=== PATIENT | female | born 1930 | race Caucasian/White ===

== ENCOUNTER → 2016-09-19 | Outpatient (CLI) | payer BC ==
[~2016-09-19] MED LIST: ACET-1311 PO; DYZ PO; LISI-461 PO; MAGNSUS5 PO; METO50TA16 PO; MULT-411 PO; SIMV10TA2 PO
[2016-09-19 17:38] LABS: HEMATOCRIT 37.2 % (37-47); MEAN CELL VOLUME 96.6 fL (80-100); MEAN CORPUSCULAR HEMOGLOBIN 32.2 pg (25-34); MEAN CORPUSCULAR HGB CONC 33.3 g/dl (32-36); MEAN PLATELET VOLUME 9.6 fL (7.4-10.4); PLATELET COUNT 242 K/uL (130-400); RED BLOOD COUNT 3.85 M/uL (4.2-5.4)
[2016-09-19 17:47] LABS: BLOOD UREA NITROGEN 28 mg/dl (7-18); GLUCOSE 127 mg/dl (70-99)
[2016-09-19 17:48] LABS: BUN/CREATININE RATIO 25.8 (10-20); CARBON DIOXIDE 32 mmol/L (21-32); CHLORIDE 96 mmol/L (98-107); POTASSIUM 3.8 mmol/L (3.5-5.1); SODIUM 135 mmol/L (136-145)
[2016-09-19 17:52] LABS: ALB/GLOB RATIO 1.2 (0.9-2); ALKALINE PHOSPHATASE 58 U/L (45-117); ALT/SGPT 29 U/L (12-78); AST/SGOT 21 U/L (15-37); CHOLESTEROL 137 mg/dl (0-200); HDL CHOLESTEROL 70 mg/dl; LDL CHOLESTEROL CALCULATED 58 mg/dl; TRIGLYCERIDES 44 mg/dl (0-150); VERY LOW DENSITY LIPOPROT CALC 9 mg/dl
== END | disposition home or self-care (01) ==
LOC: C.LABBFT 15:28
PROVIDERS: ATTEND Internal Medicine
DX: E78.00 Pure hypercholesterolemia, unspecified (principal); I10 Essential (primary) hypertension

== ENCOUNTER → 2016-11-22 | Outpatient (CLI) | payer BC ==
--- NOTE | 2016-11-22 16:04 | DIAGNOSTIC IMAGING REPORT ---
ABDOMEN ULTRASOUND FOR HERNIA CLINICAL HISTORY: PALPABLE RLQ LUMP/PAIN COMPARISON STUDY: None. FINDINGS: There is reducible bowel containing right inguinal hernia. The neck of the hernia measures 2.4 cm. No fluid collections or masses within the right groin. IMPRESSION: Reducible bowel containing right inguinal hernia. Electronically signed by: Tomás Nayak M.D. 11/22/2016 4:03 PM Dictated Date/Time: 11/22/2016 4:02 PM
== END | disposition home or self-care (01) ==
LOC: C.ULTR 15:25
PROVIDERS: ATTEND Physician Assistant Medical
DX: K40.90 Unilateral inguinal hernia, without obstruction or gangrene, not specified as recurrent (principal); R19.03 Right lower quadrant abdominal swelling, mass and lump

== ENCOUNTER → 2017-01-20 | Outpatient (CLI) | payer BC ==
[~2017-01-20] MED LIST changes: +FURO-85 PO; +METO25TA3 PO; -METO50TA16 PO
[2017-01-20 13:17] LABS: URINE APPEARANCE CLEAR (CLEAR); URINE BILIRUBIN NEG (NEG); URINE COLOR YELLOW; URINE NITRITE NEG (NEG); URINE PH 7.5 (4.5-7.5); URINE SPECIFIC GRAVITY 1.011 (1.000-1.030); UROBILINOGEN NEG (NEG)
[2017-01-20 13:21] LABS: MANUAL MICROSCOPIC REQUIRED? NO; REVIEW REQ? NO
== END | disposition home or self-care (01) ==
LOC: C.LAB 09:51
PROVIDERS: ATTEND Internal Medicine
DX: R39.9 Unspecified symptoms and signs involving the genitourinary system (principal)

== ENCOUNTER → 2017-06-28 | Outpatient (CLI) | payer BC ==
[~2017-06-28] MED LIST changes: -METO25TA3 PO; +METO25TA4 PO
[2017-06-28 16:27] LABS: BASO % 1.1 %; BASO ABS # 0.06 K/uL (0-0.2); EOS % 1.3 %; EOS ABS # 0.07 K/uL (0-0.5); HEMATOCRIT 35.3 % (37-47); HEMOGLOBIN 12.3 g/dL (12.0-16.0); IG# 0.01 K/uL (0.00-0.02); LYMPH % 26.5 %; MEAN CELL VOLUME 95.9 fL (80-100); MEAN CORPUSCULAR HEMOGLOBIN 33.4 pg (25-34); MEAN CORPUSCULAR HGB CONC 34.8 g/dl (32-36); MEAN PLATELET VOLUME 9.5 fL (7.4-10.4); MONO % 8.5 %; MONO ABS # 0.45 K/uL (0.11-0.59); NEUT % 62.4 %; NEUT ABS # 3.29 K/uL (1.4-6.5); PLATELET COUNT 248 K/uL (130-400); RED CELL DISTRIBUTION WIDTH CV 13.1 % (11.5-14.5); RED CELL DISTRIBUTION WIDTH SD 45.8 fL (36.4-46.3); WHITE BLOOD COUNT 5.28 K/uL (4.8-10.8)
[2017-06-28 16:44] LABS: ALBUMIN 3.7 gm/dl (3.4-5.0); ALT/SGPT 22 U/L (12-78); AST/SGOT 20 U/L (15-37); BLOOD UREA NITROGEN 23 mg/dl (7-18); CALCIUM 8.9 mg/dl (8.5-10.1); CARBON DIOXIDE 31 mmol/L (21-32); CHOLESTEROL 126 mg/dl (0-200); CREATININE 1.13 mg/dl (0.60-1.20); GLUCOSE 110 mg/dl (70-99); POTASSIUM 3.5 mmol/L (3.5-5.1); SODIUM 133 mmol/L (136-145)
[2017-06-28 16:54] LABS: ALKALINE PHOSPHATASE 51 U/L (45-117); LDL CHOLESTEROL CALCULATED 51 mg/dl; TOTAL PROTEIN 6.9 gm/dl (6.4-8.2)
[2017-06-29 08:08] LABS: HEMOGLOBIN A1C 5.3 % (4.5-5.6)
== END | disposition home or self-care (01) ==
LOC: C.LABBFT 14:44
PROVIDERS: ATTEND Internal Medicine
DX: E78.00 Pure hypercholesterolemia, unspecified (principal); R73.01 Impaired fasting glucose; I10 Essential (primary) hypertension

== ENCOUNTER 2017-09-28 09:25 | Inpatient (IN) | payer BC, OTHER ==
[~2017-09-28] VITALS: Ht 152.4 cm; Wt 58.2 kg
[2017-09-28 10:18] LABS: PTT PATIENT 25.7 SECONDS (21.0-31.0)
--- NOTE | 2017-09-28 10:24 | DIAGNOSTIC IMAGING REPORT ---
HEAD WITHOUT CONTRAST (CT) CLINICAL HISTORY: 87 years-old Female presenting with EVALUATE WEAKNESS. TECHNIQUE: Multidetector CT imaging of the head was performed without the use of intravenous contrast. IV contrast: None. A dose lowering technique was used consistent with the principles of ALARA (as low as reasonably achievable). COMPARISON: 01/14/2017. CT DOSE (mGy.cm): The estimated cumulative dose is 614.27 mGy.cm. FINDINGS: Industrial Illuminating Engineer topogram: Unremarkable. Proportional ventricular and sulcal prominence, likely age-related parenchymal volume loss. Periventricular and subcortical white matter hypoattenuation, nonspecific but likely indicative of chronic small vessel ischemic change. No mass effect or midline shift. No hemorrhage or acute territorial infarct. No extra-axial fluid collection. Paranasal sinuses and mastoid air cells clear. Calvarium intact. IMPRESSION: 1. Chronic small vessel ischemic change. No acute intracranial abnormality. Electronically signed by: Prakash Salter M.D. 09/28/2017 10:23 AM Dictated Date/Time: 09/28/2017 10:21 AM
--- NOTE | 2017-09-28 10:26 | DIAGNOSTIC IMAGING REPORT ---
CHEST ONE VIEW PORTABLE CLINICAL HISTORY: 87 years-old Female presenting with EVALUATE WEAKNESS. TECHNIQUE: Portable upright AP view of the chest was obtained. COMPARISON: 01/14/2017. FINDINGS: Atherosclerosis of the aortic arch. Cardiac silhouette enlarged. Pulmonary vascular prominence. Mildly low lung volumes. Vague opacity at the right lung base stable to slightly increased from prior. No large effusion or pneumothorax. Degenerative changes of the thoracic spine. Upper abdomen normal. IMPRESSION: 1. Cardiomegaly with mild volume overload. 2. Right basilar opacity may represent vascular shadows or atelectasis. Electronically signed by: Prakash Salter M.D. 09/28/2017 10:24 AM Dictated Date/Time: 09/28/2017 10:23 AM
[2017-09-28 10:28] LABS: BASO % 0.3 %; BASO ABS # 0.02 K/uL (0-0.2); EOS % 0.1 %; EOS ABS # 0.01 K/uL (0-0.5); HEMATOCRIT 34.1 % (37-47); HEMOGLOBIN 12.7 g/dL (12.0-16.0); IG# 0.01 K/uL (0.00-0.02); LYMPH % 12.3 %; LYMPH ABS # 0.86 K/uL (1.2-3.4); MEAN CELL VOLUME 90.5 fL (80-100); MEAN CORPUSCULAR HEMOGLOBIN 33.7 pg (25-34); MEAN CORPUSCULAR HGB CONC 37.2 g/dl (32-36); MEAN PLATELET VOLUME 9.5 fL (7.4-10.4); MONO % 9.3 %; MONO ABS # 0.65 K/uL (0.11-0.59); NEUT % 77.9 %; NEUT ABS # 5.42 K/uL (1.4-6.5); PLATELET COUNT 244 K/uL (130-400); RED CELL DISTRIBUTION WIDTH CV 12.5 % (11.5-14.5); RED CELL DISTRIBUTION WIDTH SD 40.7 fL (36.4-46.3); WHITE BLOOD COUNT 6.97 K/uL (4.8-10.8)
[2017-09-28 10:32] LABS: ALKALINE PHOSPHATASE 59 U/L (45-117); ALT/SGPT 28 U/L (12-78); AST/SGOT 48 U/L (15-37); BLOOD UREA NITROGEN 19 mg/dl (7-18); CALCIUM 8.9 mg/dl (8.5-10.1); CARBON DIOXIDE 27 mmol/L (21-32); CREATININE 1.07 mg/dl (0.60-1.20); GLUCOSE 123 mg/dl (70-99); LIPASE 135 U/L (73-393); POTASSIUM 3.4 mmol/L (3.5-5.1); SODIUM 119 mmol/L (136-145); TOTAL PROTEIN 7.5 gm/dl (6.4-8.2)
[2017-09-28] MEDS ORDERED: ACET-1256 PO (11:30)
[2017-09-28] MEDS ORDERED: LISI-461 PO (11:30)
[2017-09-28] MEDS ORDERED: FURO-85 PO (11:30)
[2017-09-28] MEDS ORDERED: TEMA15CA4 PO (11:30)
[2017-09-28] MEDS ORDERED: LORA-554 PEG (11:30)
[2017-09-28] MEDS ORDERED: LISI10TA PO (11:30)
[2017-09-28] MEDS ORDERED: MULTCHW PO (11:30)
[2017-09-28] MEDS ORDERED: SIMV10TA5 PO (11:30)
[2017-09-28] MEDS ORDERED: CRANCAP4 PO (11:30)
[2017-09-28] MEDS ORDERED: CYAN500T PO (11:30)
[2017-09-28] MEDS ORDERED: TRIA37.5 PO (11:30)
[2017-09-28] MEDS ORDERED: METO-478 PO (11:30)
[2017-09-28] MEDS ORDERED: MOML PO (11:30)
[2017-09-28] MEDS ORDERED: SODIUM CHLORIDE 0.9% 500ML 500 ML IV ONE (12:00)
[2017-09-28] MEDS ORDERED: ONDANSETRON INJ 2 MG/ML 2 ML VIAL IV PRN (12:00)
[2017-09-28] MEDS ORDERED: MAGNESIUM HYDROXIDE SUSP 30 ML UDC PO PRN (12:00)
[2017-09-28] MEDS ORDERED: ALUMINUM/MAGNESIUM/SIMETH (MAALOX MAX) 30 ML UDC PO PRN (12:00)
[2017-09-28] MEDS ORDERED: POLYETHYLENE (MIRALAX) 17 GM PACK PO PRN (12:00)
[2017-09-28] MEDS ORDERED: ACETAMINOPHEN 325 MG TAB PO PRN (12:00)
--- NOTE | 2017-09-28 12:15 | History and Physical ---
History & Physical Date & Time of Service: Sep 28, 2017 at 12:11 Chief Complaint: Mental - Does Not Know Her Name Primary Care Physician: Lee Manuel M.D. History of Present Illness Source: family Ms. Navarrete is an 87 y/o female with PMHx of Vascular Dementia, Hemorrhagic CVA , HLD, HTN, Severe Tricuspid Regurgitation, Multifocal Atrial Tachycardia, and Pulmonary HTN who presents to the ED due to AMS. HPI obtained from daughter at bedside. She states patient has ongoing issues with dates/times due to her dementia but has noticed she has been progressively more confused over the past couple weeks. She states around September 13 she called her PCP thinking she may have a UTI and was prescribed Macrobid and completed course with really no change. She has progressively been more confused and sometimes answering questions with just random letters. During my exam when I asked her if she was coughing her response was "C, O, M" but largely answers questions appropriately. Patient is on Triamterene/HCTZ but family denies recent changes to this medication. Also takes daily Lasix. She was recently started on Restoril for insomnia issues last Monday. Per daughter, today she was found wandering the house. They report her legs are more swollen then baseline but has ongoing issues with such and varicosities. Past Medical/Surgical History 1. Vascular Dementia 2. H/O Hemorrhagic CVA 3. HTN 4. HLD 5. Insomnia 6. Severe Tricuspid Regurgitation 7. Multifocal Atrial Tachycardia 8. Pulmonary HTN Family History Diabetes Emphysema Gastric Cancer Myocardial Infarction Social History Smoking Status: Never Smoker Marital Status: Housing status: lives with family Occupational Status: retired Immunizations History of Influenza Vaccine: Yes Influenza Vaccine Date: Jan 06, 2012 History of Tetanus Vaccine?: Unknown History of Pneumococcal: Yes Pneumococcal Date: Jun 05, 2009 History of Hepatitis B Vaccine: No Allergies Coded Allergies: Sulfamethoxazole w/Trimethoprim (Verified Allergy, Unknown, nausea, diarrhea, 09/28/17) allscripts Home Medications Scheduled Acetaminophen (Tylenol), 500 MG PO Q4-6H Cranberry-Vitamin C-Vitamin E (Cranberry Plus Vitamin C 4200-20-3 mg-Unit), 1 CAP PO DAILY Cyanocobalamin (Vitamin B-12), 500 MCG PO DAILY Furosemide (Lasix), 20 MG PO DAILY Lisinopril (Zestril), 10 MG PO DAILY Loratadine (Allergy Relief), 10 MG PEG DAILY Magnesium Hydroxide (Milk Of Magnesia), 30 ML PO UD Metoprolol Succinate (Toprol Xl), 12.5 MG PO DAILY Multiple Vitamins W/ Minerals (Centrum Silver), 1 TAB PO DAILY Simvastatin (Zocor), 10 MG PO QPM Temazepam (Restoril), 7.5 MG PO HS Triamterene/Hctz (Dyazide 37.5MG/25MG), 1 TAB PO BID Review of Systems Constitutional: No fever, No chills ENT: No nasal symptoms, No sore throat Respiratory: No cough, No shortness of breath Abdomen: No pain, No nausea, No vomiting, No diarrhea, No constipation Musculoskeletal: + swelling (b/l lower extremities), No calf pain Genitourinary - Female: No dysuria Neurologic: No numbness/tingling Hematologic / Lymphatic: No abnormal bleeding/bruising Integumentary: No rash Physical Exam Vital Signs Date Time Temp Pulse Resp B/P (MAP) Pulse Ox O2 Delivery O2 Flow Rate FiO2 09/28/17 10:47 74 16 108/63 96 Room Air 09/28/17 09:51 83 09/28/17 09:27 36.8 87 18 131/72 94 Room Air General Appearance: WD/WN, no apparent distress Head: normocephalic, atraumatic Eyes: sclerae normal ENT: + pertinent finding (moist oral mucosa) Neck: supple, no JVD, trachea midline Respiratory/Chest: lungs clear, no respiratory distress, no accessory muscle use, + decreased breath sounds Cardiovascular: regular rate, rhythm, + systolic murmur Abdomen/GI: normal bowel sounds, non tender, soft Extremities/Musculoskelatal: + swelling (2+ pitting edema b/l lower extremities ;varicosities), + pertinent finding (L 2nd toe with mild erythema but not warm to touch - callus like area between 2nd and great toe) Neurologic/Psych: alert Skin: normal color, warm/dry Diagnostics Laboratory Results Results Past 24 Hours Test 09/28/17 09:45 09/28/17 10:38 09/28/17 10:47 Range/Units White Blood Count 6.97 4.8-10.8 K/uL Red Blood Count 3.77 4.2-5.4 M/uL Hemoglobin 12.7 12.0-16.0 g/dL Hematocrit 34.1 37-47 % Mean Corpuscular Volume 90.5 80-100 fL Mean Corpuscular Hemoglobin 33.7 25-34 pg Mean Corpuscular Hemoglobin Concent 37.2 32-36 g/dl Platelet Count 244 130-400 K/uL Mean Platelet Volume 9.5 7.4-10.4 fL Neutrophils (%) (Auto) 77.9 % Lymphocytes (%) (Auto) 12.3 % Monocytes (%) (Auto) 9.3 % Eosinophils (%) (Auto) 0.1 % Basophils (%) (Auto) 0.3 % Neutrophils # (Auto) 5.42 1.4-6.5 K/uL Lymphocytes # (Auto) 0.86 1.2-3.4 K/uL Monocytes # (Auto) 0.65 0.11-0.59 K/uL Eosinophils # (Auto) 0.01 0-0.5 K/uL Basophils # (Auto) 0.02 0-0.2 K/uL RDW Standard Deviation 40.7 36.4-46.3 fL RDW Coefficient of Variation 12.5 11.5-14.5 % Immature Granulocyte % (Auto) 0.1 % Immature Granulocyte # (Auto) 0.01 0.00-0.02 K/uL Prothrombin Time 10.9 9.0-12.0 SECONDS Prothromb Time International Ratio 1.0 0.9-1.1 Activated Partial Thromboplast Time 25.7 21.0-31.0 SECONDS Partial Thromboplastin Ratio 1.0 Sodium Level 119 136-145 mmol/L Potassium Level 3.4 3.5-5.1 mmol/L Chloride Level 83 98-107 mmol/L Carbon Dioxide Level 27 21-32 mmol/L Anion Gap 10.0 3-11 mmol/L Blood Urea Nitrogen 19 7-18 mg/dl Creatinine 1.07 0.60-1.20 mg/dl Est Creatinine Clear Calc Drug Dose 29.2 ml/min Estimated GFR () 53.7 Estimated GFR (Non- 46.3 BUN/Creatinine Ratio 17.9 10-20 Random Glucose 123 70-99 mg/dl Calcium Level 8.9 8.5-10.1 mg/dl Magnesium Level 1.8 1.8-2.4 mg/dl Total Bilirubin 1.0 0.2-1 mg/dl Direct Bilirubin 0.4 0-0.2 mg/dl Aspartate Amino Transf (AST/SGOT) 48 15-37 U/L Alanine Aminotransferase (ALT/SGPT) 28 12-78 U/L Alkaline Phosphatase 59 45-117 U/L Troponin I < 0.015 0-0.045 ng/ml Pro-B-Type Natriuretic Peptide 1889 0-1800 pg/ml Total Protein 7.5 6.4-8.2 gm/dl Albumin 4.0 3.4-5.0 gm/dl Lipase 135 73-393 U/L Thyroid Stimulating Hormone (TSH) 1.930 0.300-4.500 uIu/ml Ammonia < 10.0 11-32 umol/L Osmolality 254 280-300 mOsm/kg Diagnostic Radiology HEAD WITHOUT CONTRAST (CT) FINDINGS: Automatic Blocker topogram: Unremarkable. Proportional ventricular and sulcal prominence, likely age-related parenchymal volume loss. Periventricular and subcortical white matter hypoattenuation, nonspecific but likely indicative of chronic small vessel ischemic change. No mass effect or midline shift. No hemorrhage or acute territorial infarct. No extra-axial fluid collection. Paranasal sinuses and mastoid air cells clear. Calvarium intact. IMPRESSION: 1. Chronic small vessel ischemic change. No acute intracranial abnormality. CHEST ONE VIEW PORTABLE FINDINGS: Atherosclerosis of the aortic arch. Cardiac silhouette enlarged. Pulmonary vascular prominence. Mildly low lung volumes. Vague opacity at the right lung base stable to slightly increased from prior. No large effusion or pneumothorax. Degenerative changes of the thoracic spine. Upper abdomen normal. IMPRESSION: 1. Cardiomegaly with mild volume overload. 2. Right basilar opacity may represent vascular shadows or atelectasis. EKG Sinus rhythm with A-V dissociation and Accelerated Junctional rhythm Low voltage QRS Cannot rule out Anterior infarct , age undetermined Abnormal ECG When compared with ECG of 14-JAN-2017 18:37, Junctional rhythm has replaced Sinus rhythm Impression Assessment and Plan Ms. Navarrete is an 87 y/o female with PMHx of Vascular Dementia, Hemorrhagic CVA , HLD, HTN, Severe Tricuspid Regurgitation, Multifocal Atrial Tachycardia, and Pulmonary HTN who presents to the ED due to AMS Acute Metabolic Encephalopathy 2/2 Hyponatremia vs Other: - Na at 119 currently - likely induced by HCTZ? Maybe some from overload as she does have edematous legs and findings on XR but is breathing fine without issue ; no overt signs of infection - Will await UA osms and random Urine Na - will repeat labs this afternoon and get random cortisol level - Hold Lasix and Triameterene/HCTZ - will give gentle fluids and Na tab x 1 now and re-assess with labs -- Echo shows EF 6-65% with grade I diastolic dysfunction - will monitor for further signs of overload as she does have edematous lower extremities which may be multifactorial given her varicositis/insufficiency - Given her speech abnormality will obtain MRI HTN/HLD: - BP has been on the lower side since admission - Will hold Lisinopril; Continue Toprol XL 12.5 mg daily with hold paramenters - Zocor 10 mg daily DVT Prophylaxis: Heparin Code Status: DNR Disposition: PT/OT Resuscitation Status VTE Prophylaxis Will order VTE Prophylaxis: Yes
[2017-09-28 12:16] VITALS: BMI 25.4
[2017-09-28 12:45] VITALS: BP 104/67; PULSE 118; TEMP 36.9; O2SAT 95
[2017-09-28 13:18] VITALS: BP 104/67; TEMP 36.9; O2SAT 96
[2017-09-28] MEDS ORDERED: SODIUM CHLORIDE 1 GM TAB PO STA (14:43)
[2017-09-28] MEDS ORDERED: NURSING VERBAL MED ORDER ONE (15:00)
--- NOTE | 2017-09-28 15:01 | EMERGENCY ROOM VISIT NOTE ---
History Report prepared by Aminah: Michael Zepeda Under the Supervision of: Dr. Luis Manuel Vasquez First contact with patient: 09:43 Chief Complaint: ALTERED MENTAL STATUS Stated Complaint: MENTAL - DOES NOT KNOW HER NAME History of Present Illness The patient is a 87 year old female who presents to the Emergency Room with altered mental status. The patient's daughter and neighbor report that they regularly check on her, and this morning found her wandering around the house. They report that they had also seen her last night at 8:30 PM, at which time they note she "didn't seem right," although they attributed it at the time to not drinking enough fluids that day. They state that her legs are currently swollen to an abnormal degree for her, more than last night. The patient reports that she was up last night and is not feeling tired. She denies falling , pain, or headache. The patient knows she is in the hospital but is unable to answer what year it is. The daughter and neighbor report that last January she was diagnosed with vascular dementia. The patient also has a history of hypertension, mini-stroke, and brain bleed. They report that last week she was prescribed a nighttime sleep aid by her PCP, Dr. Manuel. They state that she did not take the sleeping aid last night. They also report that the patient regularly sees an occupational therapist and a speech therapist, but that she has not seen a neurologist. The patient regularly takes a diuretic. Source of History: patient, family, other Onset: last night Position: other (global) Quality: other (altered mental status) Associated Symptoms: No headache Review of Systems See HPI for pertinent positives and negatives. A total of ten systems were reviewed and were otherwise negative. Past Medical & Surgical Medical Problems: (1) Benign hypertension (2) Hyponatremia (3) Intracranial hemorrhage (4) Left ankle fracture (5) Metabolic encephalopathy (6) Transient ischemic attack Social History Smoking Status: Never Smoker Marital Status: Housing Status: lives with family Occupation Status: retired Current/Historical Medications Scheduled Acetaminophen (Tylenol), 500 MG PO Q4-6H Cranberry-Vitamin C-Vitamin E (Cranberry Plus Vitamin C 4200-20-3 mg-Unit), 1 CAP PO DAILY Cyanocobalamin (Vitamin B-12), 500 MCG PO DAILY Furosemide (Lasix), 20 MG PO DAILY Lisinopril (Zestril), 10 MG PO DAILY Loratadine (Allergy Relief), 10 MG PEG DAILY Magnesium Hydroxide (Milk Of Magnesia), 30 ML PO UD Metoprolol Succinate (Toprol Xl), 12.5 MG PO DAILY Multiple Vitamins W/ Minerals (Centrum Silver), 1 TAB PO DAILY Simvastatin (Zocor), 10 MG PO QPM Temazepam (Restoril), 7.5 MG PO HS Triamterene/Hctz (Dyazide 37.5MG/25MG), 1 TAB PO BID Allergies Coded Allergies: Sulfamethoxazole w/Trimethoprim (Verified Allergy, Unknown, nausea, diarrhea, 09/28/17) allscripts Physical Exam Vital Signs Date Time Temp Pulse Resp B/P (MAP) Pulse Ox O2 Delivery O2 Flow Rate FiO2 09/28/17 10:47 74 16 108/63 96 Room Air 09/28/17 09:51 83 09/28/17 09:27 36.8 87 18 131/72 94 Room Air Physical Exam GENERAL: Awake, alert to location, pleasant and cooperative but not oriented to time. In no distress HENT: Normocephalic, atraumatic. Oropharynx unremarkable. EYES: Normal conjunctiva. Sclera non-icteric. NECK: Supple. No nuchal rigidity. RESPIRATORY: Clear to auscultation. No wheezes. Normal respiratory effort. CARDIAC: Normal rate. Irregular rhythm. Extremities warm and well perfused. GI: Soft, non-distended. No tenderness to palpation. No rebound or guarding. No masses. RECTAL: Deferred. MUSCULOSKELETAL: Atraumatic. Chest examination reveals no tenderness.There is no CVA tenderness to palpation. LOWER EXTREMITIES: Calves are equal size bilaterally and non-tender. Bilateral 3 + leg edema to the knees. NEURO: Normal sensorium. No sensory or motor deficits noted. No facial droop or dysarthia. Patient on most questioning will only repeatedly spell different words not related to the questions. SKIN: Warm and dry. No jaundice noted. Medical Decision & Procedures ER Provider Diagnostic Interpretation: Radiology results as stated below per my review and radiologist interpretation: CHEST ONE VIEW PORTABLE CLINICAL HISTORY: 87 years-old Female presenting with EVALUATE WEAKNESS. TECHNIQUE: Portable upright AP view of the chest was obtained. COMPARISON: 01/14/2017. FINDINGS: Atherosclerosis of the aortic arch. Cardiac silhouette enlarged. Pulmonary vascular prominence. Mildly low lung volumes. Vague opacity at the right lung base stable to slightly increased from prior. No large effusion or pneumothorax. Degenerative changes of the thoracic spine. Upper abdomen normal. IMPRESSION: 1. Cardiomegaly with mild volume overload. 2. Right basilar opacity may represent vascular shadows or atelectasis. Electronically signed by: Prakash Salter M.D. 09/28/2017 10:24 AM HEAD WITHOUT CONTRAST (CT) CLINICAL HISTORY: 87 years-old Female presenting with EVALUATE WEAKNESS. TECHNIQUE: Multidetector CT imaging of the head was performed without the use of intravenous contrast. IV contrast: None. A dose lowering technique was used consistent with the principles of ALARA (as low as reasonably achievable). COMPARISON: 01/14/2017. CT DOSE (mGy.cm): The estimated cumulative dose is 614.27 mGy.cm. FINDINGS: Gis Manager topogram: Unremarkable. Proportional ventricular and sulcal prominence, likely age-related parenchymal volume loss. Periventricular and subcortical white matter hypoattenuation, nonspecific but likely indicative of chronic small vessel ischemic change. No mass effect or midline shift. No hemorrhage or acute territorial infarct. No extra-axial fluid collection. Paranasal sinuses and mastoid air cells clear. Calvarium intact. IMPRESSION: 1. Chronic small vessel ischemic change. No acute intracranial abnormality. Electronically signed by: Prakash Salter M.D. 09/28/2017 10:23 AM Laboratory Results 09/28/17 09:45 Red Blood Count 3.77, Mean Corpuscular Volume 90.5, Mean Corpuscular Hemoglobin 33.7, Mean Corpuscular Hemoglobin Concent 37.2, Mean Platelet Volume 9.5, Neutrophils (%) (Auto) 77.9, Lymphocytes (%) (Auto) 12.3, Monocytes (%) (Auto) 9.3, Eosinophils (%) (Auto) 0.1, Basophils (%) (Auto) 0.3, Neutrophils # (Auto) 5.42, Lymphocytes # (Auto) 0.86, Monocytes # (Auto) 0.65, Eosinophils # (Auto) 0.01, Basophils # (Auto) 0.02 09/28/17 09:45 Test 09/28/17 09:45 09/28/17 10:38 7/19/18 10:47 White Blood Count 6.97 K/uL (4.8-10.8) Red Blood Count 3.77 M/uL (4.2-5.4) Hemoglobin 12.7 g/dL (12.0-16.0) Hematocrit 34.1 % (37-47) Mean Corpuscular Volume 90.5 fL (80-100) Mean Corpuscular Hemoglobin 33.7 pg (25-34) Mean Corpuscular Hemoglobin Concent 37.2 g/dl (32-36) Platelet Count 244 K/uL (130-400) Mean Platelet Volume 9.5 fL (7.4-10.4) Neutrophils (%) (Auto) 77.9 % Lymphocytes (%) (Auto) 12.3 % Monocytes (%) (Auto) 9.3 % Eosinophils (%) (Auto) 0.1 % Basophils (%) (Auto) 0.3 % Neutrophils # (Auto) 5.42 K/uL (1.4-6.5) Lymphocytes # (Auto) 0.86 K/uL (1.2-3.4) Monocytes # (Auto) 0.65 K/uL (0.11-0.59) Eosinophils # (Auto) 0.01 K/uL (0-0.5) Basophils # (Auto) 0.02 K/uL (0-0.2) RDW Standard Deviation 40.7 fL (36.4-46.3) RDW Coefficient of Variation 12.5 % (11.5-14.5) Immature Granulocyte % (Auto) 0.1 % Immature Granulocyte # (Auto) 0.01 K/uL (0.00-0.02) Prothrombin Time 10.9 SECONDS (9.0-12.0) Prothromb Time International Ratio 1.0 (0.9-1.1) Activated Partial Thromboplast Time 25.7 SECONDS (21.0-31.0) Partial Thromboplastin Ratio 1.0 Anion Gap 10.0 mmol/L (3-11) Est Creatinine Clear Calc Drug Dose 29.2 ml/min Estimated GFR () 53.7 Estimated GFR (Non- 46.3 BUN/Creatinine Ratio 17.9 (10-20) Calcium Level 8.9 mg/dl (8.5-10.1) Magnesium Level 1.8 mg/dl (1.8-2.4) Total Bilirubin 1.0 mg/dl (0.2-1) Direct Bilirubin 0.4 mg/dl (0-0.2) Aspartate Amino Transf (AST/SGOT) 48 U/L (15-37) Alanine Aminotransferase (ALT/SGPT) 28 U/L (12-78) Alkaline Phosphatase 59 U/L (45-117) Troponin I < 0.015 ng/ml (0-0.045) Pro-B-Type Natriuretic Peptide 1889 pg/ml (0-1800) Total Protein 7.5 gm/dl (6.4-8.2) Albumin 4.0 gm/dl (3.4-5.0) Lipase 135 U/L (73-393) Thyroid Stimulating Hormone (TSH) 1.930 uIu/ml (0.300-4.500) Ammonia < 10.0 umol/L (11-32) Osmolality 254 mOsm/kg (280-300) Laboratory results reviewed by me ECG Per My Interpretation Indication: altered mental status Rate (beats per minute): 95 Rhythm: normal sinus Findings: PVC, other (non-specific T wave changes) Comparison ECG Date: 01/14/17 Change: no significant change ED Course 0945: The patient was evaluated in room B11B. A complete history and physical exam was performed. 1110: I spoke with Helena Gonzalez PA-C: [facility] Hospitalist. She will reevaluate the patient for admission. Medical Decision Etiologies such as metabolic, infection, hypo/hyperglycemia, electrolyte abnormalities, cardiac sources, intracerebral event, toxicologic, neurologic, as well as others were entertained. Patient presents with decreased oral intake over the past 24 hours with some more confusion. Has history of dementia but now acutely worse. No new trauma appreciated. Some increased leg swelling appreciated bilaterally. Infectious and metabolic workup completed. Basilar atelectasis with mild pulmonary edema; no O2 requirement. Doubt ACS or PE or dissection. CT of the head with chronic small vessel ischemic changes without acute bleed. Does not seem consistent for stroke. No significant leukocytosis or anemia. No acute kidney injury, but evidence of hyponatremia and borderline hypokalemia. This appears acute on chronic and may be contributing to her altered state. Likely hypovolemic in nature given her decreased oral intake but could be related to her diuresis. Doubt this is an acute heart failure exacerbation or lower extremity cellulitis. Believe that as she was ambulatory all night and this is contributing to her increased LLE edema. TSH within normal limits. Given the confusion and hyponatremia believe admission is warranted especially given her need for monitoring of her volume status. DWAINE Gonzalez contacted for admission. Medication Reconcilliation Current Medication List: was personally reviewed by me Blood Pressure Screening Patient's blood pressure: Elevated blood pressure Blood pressure disposition: Elevated BP felt to be situational Consults Time Called: 1107 Consulting Physician: Helena Gonzalez PA-C: [facility] Hospitalist Returned Call: 1110 I spoke with Helena Gonzalez PA-C: [facility] Hospitalist. She will reevaluate the patient for admission. Impression Primary Impression: Hyponatremia Additional Impressions: Hypokalemia Altered mental status Scribe Attestation The scribe's documentation has been prepared under my direction and personally reviewed by me in its entirety. I confirm that the note above accurately reflects all work, treatment, procedures, and medical decision making performed by me. Departure Information Dispostion Being Evaluated By Hospitalist Patient Instructions My [facility] Problem Qualifiers Additional Impressions: Altered mental status Altered mental status type: disorientation Qualified Codes: R41.0 - Disorientation, unspecified
[2017-09-28] MEDS: HEPARIN SOD 5000 UNIT/0.5 ML CARP SQ SCH ×2 (15:27→21:03)
[2017-09-28] MEDS: SODIUM CHLORIDE 0.9% 1000ML 1,000 ML IV SCH (15:28)
[2017-09-28 15:32] VITALS: BP 103/60; PULSE 86; TEMP 36.5; O2SAT 98
[2017-09-28] MEDS ORDERED: GADAVIST IV PRN (17:00)
--- NOTE | 2017-09-28 17:07 | DIAGNOSTIC IMAGING REPORT ---
BRAIN COMBO HISTORY: 87 years-old Female Altered Mental Status acutely altered mental status with confusion. History of dementia. COMPARISON: 09/28/2017 and 01/14/2017 TECHNIQUE: Multiplanar multisequence MRI of the brain was obtained both with and without the use of 5.5 mL Gadavist. FINDINGS: Engine Mechanic localizer images demonstrate no gross abnormality. Study is mildly motion degraded. Midline structures including the corpus callosum, brainstem, optic chiasm, pituitary and pineal glands appear unremarkable on the sagittal T1 series. No cerebellar tonsillar herniation identified. Degenerative changes about the imaged cervical spine are noted. There is no restricted diffusion to suggest acute or subacute infarction. No acute intracranial hemorrhage, midline shift, abnormal extra-axial collections, hydrocephalus or intracranial mass identified. Moderate T2/FLAIR prolongation throughout the white matter of the cerebral hemispheres bilaterally suggests chronic microvascular ischemic changes. Moderate cerebral atrophy with ex vacuo ventriculomegaly. Major flow voids appear to be patent. Prior bilateral cataract repair. Orbits appear to be unremarkable. The mastoid air cells are clear. Mild mucosal thickening of the ethmoid sinuses. The scalp and soft tissues and calvarium are unremarkable. There is no abnormal intra-axial or extra-axial enhancement identified. IMPRESSION: 1. Motion degraded exam without acute intracranial abnormality identified. 2. No acute infarction or abnormal enhancement. 3. Atrophy with probable chronic microvascular ischemic changes. The above report was generated using voice recognition software. It may contain grammatical, syntax or spelling errors. Electronically signed by: Tanner Wright M.D. 09/28/2017 5:06 PM Dictated Date/Time: 09/28/2017 4:58 PM
[2017-09-28 17:55] LABS: CALCIUM 8.3 mg/dl (8.5-10.1); CREATININE 1.04 mg/dl (0.60-1.20); POTASSIUM 3.6 mmol/L (3.5-5.1)
[2017-09-28 19:35] VITALS: BP 108/67; PULSE 64; TEMP 37.2; O2SAT 94
[2017-09-28 20:00] VITALS: O2SAT 94
[2017-09-28] MEDS: SIMVASTATIN 10 MG TAB PO SCH (20:58)
[2017-09-29 00:07] VITALS: BP 105/65; PULSE 80; TEMP 37.1; O2SAT 94
[2017-09-29] MEDS: SODIUM CHLORIDE 0.9% 1000ML 1,000 ML IV SCH (04:27)
[2017-09-29 04:47] VITALS: BP 112/64; PULSE 69; TEMP 36.9; O2SAT 94
[2017-09-29] MEDS: HEPARIN SOD 5000 UNIT/0.5 ML CARP SQ SCH ×3 (06:07→21:01)
[2017-09-29 06:14] LABS: HEMATOCRIT 27.9 % (37-47); HEMOGLOBIN 10.2 g/dL (12.0-16.0); MEAN CELL VOLUME 92.1 fL (80-100); MEAN CORPUSCULAR HEMOGLOBIN 33.7 pg (25-34); MEAN CORPUSCULAR HGB CONC 36.6 g/dl (32-36); MEAN PLATELET VOLUME 9.3 fL (7.4-10.4); PLATELET COUNT 190 K/uL (130-400); RED CELL DISTRIBUTION WIDTH CV 12.8 % (11.5-14.5); WHITE BLOOD COUNT 4.35 K/uL (4.8-10.8)
[2017-09-29 06:53] LABS: CALCIUM 7.9 mg/dl (8.5-10.1); CREATININE 0.94 mg/dl (0.60-1.20); POTASSIUM 3.2 mmol/L (3.5-5.1)
[2017-09-29 07:19] VITALS: BP 130/80; PULSE 63; TEMP 36.5; O2SAT 96
[2017-09-29] MEDS ORDERED: POTASSIUM CHLR 20 MEQ / WTR 20 MEQ in PREMIXED WATER 100 ML IV STA (07:49)
[2017-09-29] MEDS ORDERED: POTASSIUM CHLORIDE 10 MEQ TABCR PO STA (07:49)
[2017-09-29] MEDS: POTASSIUM CHLR 10 MEQ / WTR 100 ML IV SCH ×2 (08:27→09:50)
[2017-09-29] MEDS: METOPROLOL SUCC 25MG EXT REL TAB PO SCH (08:28)
[2017-09-29] MEDS: CYANOCOBALAMIN 500 MCG TAB (VIT B-12) PO SCH (08:28)
--- NOTE | 2017-09-29 08:29 | Clinical Documentation Query ---
CLINICAL DOCUMENTATION QUERY 87 yo female admitted with hyponatremia and metabolic encephalopathy. Previous echo shows EF 60-65% with Grade I diastolic dysfunction. Patient takes Lasix 20mg PO at home and CXR shows cardiomegaly with mild volume overload. In your clinical opinion is this patient being managed for: ( x ) Chronic diastolic (congestive) heart failure ( ) Not Agree ( ) Other explanation of clinical findings (No explanation is considered a No Response) ( ) Unable to determine ( ) Need to Discuss (Phone CDS or qliq) (No discussion is considered a No Response) The medical record reflects the following clinical findings, treatment, and risk factors. Clinical Indicators: As above Treatment: As above Risk Factors: Age, HTN, multifocal atrial tachycardia Please clarify and document your clinical opinion in the progress notes and discharge summary. Terms such as "probable", "suspected", "likely", "questionable", "possible", or "still to be ruled out" are acceptable. IF IN AGREEMENT, YOU MUST DOCUMENT ABOVE DIAGNOSTIC STATEMENT IN DAILY PROGRESS NOTES AND DISCHARGE SUMMARY. This document is not part of the patient's record. Thank You, Janett Kraft RN, MSN [phone]
[2017-09-29] MEDS ORDERED: LISINOPRIL 10 MG TAB PO SCH (09:00)
--- NOTE | 2017-09-29 09:52 | Hospitalist Progress Note ---
Hospitalist Progress Note Date of Service Sep 29, 2017. Subjective Pt evaluation today including: conversation w/ patient, conversation w/ family (daughter Sarah at bedside), physical exam, chart review, lab review, review of studies, review of inpatient medication list Patient remains confused, not necessarily reliable ROS. Patient denies any symptoms currently. Per daughter, pt was diagnosed with vascular dementia in January 2017. Her mental state remained stable from January to August, but in the last two months or so she has been declining with more episodes of intermittent confusion. This became acutely worse yesterday morning. Daughter thinks the patient may not be eating or drinking well at home as she might be forgetting to feed herself. The patient lives at home but another daughter lives nearby and checks on her 5x/day. The patient also had PT/OT and speech therapy home health services. Per daughter, the patient's leg swelling is much improved today. The patient denies fevers, chills, sweats, chest pain, palpitations, claudication, cough, wheezing, shortness of breath, nausea, vomiting, abdominal pain, dysuria, hematuria, urinary retention, paralysis, weakness, numbness and tingling. Additional Comments: See HPI for pertinent positives and negatives. All other systems reviewed and negative. Objective Vital Signs Date Time Temp Pulse Resp B/P (MAP) Pulse Ox O2 Delivery O2 Flow Rate FiO2 09/29/17 07:19 36.5 63 17 130/80 (97) 96 Room Air 09/29/17 04:47 36.9 69 20 112/64 (80) 94 Room Air 09/29/17 00:07 37.1 80 18 105/65 (78) 94 Room Air 09/29/17 00:00 Room Air 09/28/17 20:00 94 Room Air 09/28/17 19:35 37.2 64 20 108/67 (81) 94 Room Air 09/28/17 15:32 36.5 86 18 103/60 (74) 98 Room Air 09/28/17 13:18 36.9 104/67 (79) 96 Room Air 09/28/17 12:45 36.9 118 18 104/67 (79) 95 Room Air 09/28/17 12:45 Room Air 09/28/17 12:16 Room Air 09/28/17 10:47 74 16 108/63 96 Room Air 09/28/17 09:51 83 Physical Exam Notes: General appearance: Well-developed, well-nourished, no apparent distress Head: Normocephalic, atraumatic Eyes: Normal inspection, PERRL, EOMI ENT: Normal ENT inspection, hearing grossly normal, pharynx normal Neck: Supple, no JVD, trachea midline Respiratory/Chest: +Decreased breath sounds in bases. Lungs clear to auscultation, no respiratory distress Cardiovascular: +Systolic murmur. Regular rate & rhythm, no gallop Abdomen/GI: Normal bowel sounds, non-tender, soft Extremities/Musculoskeletal: +Trace pitting edema. Normal inspection, no calf tenderness Neurological/Psych: +Disoriented to time and place. Able to tell me full name and day and month but not year. Alert, normal mood/affect, oriented x 1 Skin: Normal color, warm/dry, no rash Laboratory Results Last 24 Hours Test 09/28/17 10:38 09/28/17 10:47 09/28/17 13:45 09/28/17 17:13 Ammonia < 10.0 umol/L Osmolality 254 mOsm/kg Urine Color YELLOW Urine Appearance CLEAR Urine pH 7.0 Urine Specific [place] 1.011 Urine Protein NEG Urine Glucose (UA) NEG Urine Ketones NEG Urine Occult Blood NEG Urine Nitrite NEG Urine Bilirubin NEG Urine Urobilinogen NEG Urine Leukocyte Esterase NEG Urine Osmolality 231 mOms/kg Urine Random Sodium 17 mEq/L Sodium Level 121 mmol/L Potassium Level 3.6 mmol/L Chloride Level 85 mmol/L Carbon Dioxide Level 28 mmol/L Anion Gap 8.0 mmol/L Blood Urea Nitrogen 21 mg/dl Creatinine 1.04 mg/dl Est Creatinine Clear Calc Drug Dose 30.0 ml/min Estimated GFR () 55.6 Estimated GFR (Non- 47.9 BUN/Creatinine Ratio 20.6 Random Glucose 111 mg/dl Calcium Level 8.3 mg/dl Random Cortisol 15.19 mcg/dl Test 09/29/17 05:45 White Blood Count 4.35 K/uL Red Blood Count 3.03 M/uL Hemoglobin 10.2 g/dL Hematocrit 27.9 % Mean Corpuscular Volume 92.1 fL Mean Corpuscular Hemoglobin 33.7 pg Mean Corpuscular Hemoglobin Concent 36.6 g/dl RDW Standard Deviation 43.0 fL RDW Coefficient of Variation 12.8 % Platelet Count 190 K/uL Mean Platelet Volume 9.3 fL Sodium Level 131 mmol/L Potassium Level 3.2 mmol/L Chloride Level 95 mmol/L Carbon Dioxide Level 30 mmol/L Anion Gap 7.0 mmol/L Blood Urea Nitrogen 20 mg/dl Creatinine 0.94 mg/dl Est Creatinine Clear Calc Drug Dose 33.7 ml/min Estimated GFR () 62.8 Estimated GFR (Non- 54.2 BUN/Creatinine Ratio 21.5 Random Glucose 83 mg/dl Calcium Level 7.9 mg/dl Diagnostic Results Reviewed the following studies and agree with interpretation as follows: BRAIN COMBO HISTORY: 87 years-old Female Altered Mental Status acutely altered mental status with confusion. History of dementia. COMPARISON: 09/28/2017 and 01/14/2017 TECHNIQUE: Multiplanar multisequence MRI of the brain was obtained both with and without the use of 5.5 mL Gadavist. FINDINGS: Dry Cell Sealer localizer images demonstrate no gross abnormality. Study is mildly motion degraded. Midline structures including the corpus callosum, brainstem, optic chiasm, pituitary and pineal glands appear unremarkable on the sagittal T1 series. No cerebellar tonsillar herniation identified. Degenerative changes about the imaged cervical spine are noted. There is no restricted diffusion to suggest acute or subacute infarction. No acute intracranial hemorrhage, midline shift, abnormal extra-axial collections, hydrocephalus or intracranial mass identified. Moderate T2/FLAIR prolongation throughout the white matter of the cerebral hemispheres bilaterally suggests chronic microvascular ischemic changes. Moderate cerebral atrophy with ex vacuo ventriculomegaly. Major flow voids appear to be patent. Prior bilateral cataract repair. Orbits appear to be unremarkable. The mastoid air cells are clear. Mild mucosal thickening of the ethmoid sinuses. The scalp and soft tissues and calvarium are unremarkable. There is no abnormal intra-axial or extra-axial enhancement identified. IMPRESSION: 1. Motion degraded exam without acute intracranial abnormality identified. 2. No acute infarction or abnormal enhancement. 3. Atrophy with probable chronic microvascular ischemic changes. Assessment and Plan 87 y/o female with a history of HTN, HLD, hemorrhagic CVA, vascular dementia, severe tricuspid regurg, multifocal atrial tachycardia, and pulmonary HTN who presents to the ED on 09/28 with altered mental status. Acute encephalopathy/metabolic secondary to hyponatremia vs progressive dementia vs other--ongoing -Admit to telemetry. No acute events overnight. Pt in sinus bradycardia/sinus rhythm with HR 50s-70s -Sodium improved to 131 on 09/29 up from 121 -IVF and salt tab d/c'd -Serum and urine osmolality both low, urine random sodium WNL -Daughter at bedside, states triamterene/HCTZ increased several weeks ago -Brain MRI negative for acute disease -Pt not answering questions in random letters today, somewhat more oriented but still rather confused -Per daughter, pt had been slowly declining last two months but then became acutely much worse prior to arrival -Pt also recently started on Restoril but has not taken for several days -UA, urine culture negative -Blood cultures pending Hypokalemia -Potassium 3.2 on 09/29, down from 3.6 -KCl 20 mEq PO x1 and 10 mEq IV q1h x 2 doses HTN/HLD--stable - Will stop triamterene/HCTZ indefinitely - Can resume lisinopril 10 mg PO qd - Continue Toprol XL 12.5 mg PO qd and Zocor 10 mg PO qd H/o hemorrhagic CVA--daughter states last time pt had speech abnormality was her brain bleed -Head CT negative for hemorrhage, MRI negative as above Chronic diastolic CHF--stable -Mild volume overload on CXR but asymptomatic -Lower extremity edema improved -Continue metoprolol, lisinopril -Lasix on hold Callous on toe w/ulcer -Consult wound care nurse, recommended podiatry consult -Consult podiatry, appreciate recs DVT prophylaxis -Heparin 5000 units SC q8h Code Status -Level V, DO NOT RESUSCITATE
[2017-09-29 10:58] VITALS: BMI 26.1
[2017-09-29 11:03] VITALS: Ht 152.4 cm; Wt 58.2 kg
[2017-09-29 12:44] LABS: CALCIUM 8.1 mg/dl (8.5-10.1); CREATININE 0.81 mg/dl (0.60-1.20); POTASSIUM 3.9 mmol/L (3.5-5.1)
[2017-09-29 15:48] VITALS: BP 133/84; PULSE 74; TEMP 36.6; O2SAT 95
[2017-09-29 19:37] VITALS: BP 137/74; PULSE 70; TEMP 36.7; O2SAT 96
[2017-09-29] MEDS: SIMVASTATIN 10 MG TAB PO SCH (21:01)
[2017-09-30 00:15] VITALS: BP 131/79; PULSE 83; TEMP 36.7; O2SAT 95
[2017-09-30] MEDS: HEPARIN SOD 5000 UNIT/0.5 ML CARP SQ SCH ×3 (05:33→20:49)
[2017-09-30 06:21] LABS: HEMATOCRIT 32.2 % (37-47); HEMOGLOBIN 11.7 g/dL (12.0-16.0); MEAN CELL VOLUME 92.8 fL (80-100); MEAN CORPUSCULAR HEMOGLOBIN 33.7 pg (25-34); MEAN CORPUSCULAR HGB CONC 36.3 g/dl (32-36); MEAN PLATELET VOLUME 9.4 fL (7.4-10.4); PLATELET COUNT 196 K/uL (130-400); RED CELL DISTRIBUTION WIDTH CV 12.9 % (11.5-14.5); RED CELL DISTRIBUTION WIDTH SD 43.7 fL (36.4-46.3); WHITE BLOOD COUNT 5.11 K/uL (4.8-10.8)
[2017-09-30 06:52] LABS: CALCIUM 8.5 mg/dl (8.5-10.1); CREATININE 0.83 mg/dl (0.60-1.20); POTASSIUM 3.6 mmol/L (3.5-5.1)
[2017-09-30 07:05] VITALS: BP 151/75; PULSE 80; TEMP 36.7; O2SAT 94
[2017-09-30] MEDS: LISINOPRIL 10 MG TAB PO SCH (07:49)
[2017-09-30] MEDS: CYANOCOBALAMIN 500 MCG TAB (VIT B-12) PO SCH (07:49)
[2017-09-30] MEDS: METOPROLOL SUCC 25MG EXT REL TAB PO SCH (07:49)
[2017-09-30 16:00] VITALS: O2SAT 94
[2017-09-30] MEDS ORDERED: OLANZAPINE ZYDIS 5 MG ORALLY DIS. TAB PO PRN (17:00)
--- NOTE | 2017-09-30 17:47 | Hospitalist Progress Note ---
Hospitalist Progress Note Date of Service Sep 30, 2017. Subjective Pt evaluation today including: conversation w/ patient, conversation w/ family (updated both daughters extensively over phone), physical exam, chart review, lab review, review of inpatient medication list Patient agitated and hostile today. Unable to obtain reliable ROS. Patient was repeatedly getting out of bed last night so a 1 to 1 sitter was initiated and the patient was moved to a room closer to the nurses' station. Today she continues to be agitated and at times combative. The patient had tolerated breakfast but then smeared her lunch over the santos and under the bed. Upon speaking with one of her daughters later, the daughter states the patient was having paranoid delusions that the staff was trying to kill her and poison her, which is likely why she disposed of her lunch. The daughter also detailed visual hallucinations the patient was having, such as seeing people/objects that were not there. Both daughters state that she has never been agitated like this before. I spoke to each daughter separately over the phone and extensively updated both. Both are agreeable to plan detailed below. The one daughter, Sarah, mentioned that she had discussed home hospice with case management, and inquired about a palliative referral. Additional Comments: Unable to obtain reliable ROS due to mental status. Objective Vital Signs Date Time Temp Pulse Resp B/P (MAP) Pulse Ox O2 Delivery O2 Flow Rate FiO2 09/30/17 08:00 Room Air 09/30/17 07:05 36.7 80 16 151/75 (100) 94 Room Air 09/30/17 00:15 36.7 83 20 131/79 (96) 95 Room Air 09/30/17 00:00 Room Air 09/29/17 20:17 Room Air 09/29/17 19:37 36.7 70 16 137/74 (95) 96 Room Air Physical Exam Notes: General appearance: Well-developed, well-nourished, no apparent distress Head: Normocephalic, atraumatic Eyes: Normal inspection, PERRL, EOMI ENT: Normal ENT inspection, hearing grossly normal, pharynx normal Neck: Supple, no JVD, trachea midline Respiratory/Chest: +Decreased breath sounds in bases. Lungs clear to auscultation, no respiratory distress Cardiovascular: +Systolic murmur. Regular rate & rhythm, no gallop Abdomen/GI: Normal bowel sounds, non-tender, soft Extremities/Musculoskeletal: Normal inspection, no calf tenderness, no pitting pedal edema Neurological/Psych: +Agitated and at times combative and non cooperative. Pt w /paranoid delusions and visual hallucinations. Refused to answer orientation questions. Alert Skin: Normal color, warm/dry, no rash Laboratory Results Last 24 Hours Test 09/30/17 06:08 White Blood Count 5.11 K/uL Red Blood Count 3.47 M/uL Hemoglobin 11.7 g/dL Hematocrit 32.2 % Mean Corpuscular Volume 92.8 fL Mean Corpuscular Hemoglobin 33.7 pg Mean Corpuscular Hemoglobin Concent 36.3 g/dl RDW Standard Deviation 43.7 fL RDW Coefficient of Variation 12.9 % Platelet Count 196 K/uL Mean Platelet Volume 9.4 fL Sodium Level 132 mmol/L Potassium Level 3.6 mmol/L Chloride Level 99 mmol/L Carbon Dioxide Level 26 mmol/L Anion Gap 7.0 mmol/L Blood Urea Nitrogen 16 mg/dl Creatinine 0.83 mg/dl Est Creatinine Clear Calc Drug Dose 37.4 ml/min Estimated GFR () 73.0 Estimated GFR (Non- 63.0 BUN/Creatinine Ratio 19.9 Random Glucose 95 mg/dl Calcium Level 8.5 mg/dl Assessment and Plan 87 y/o female with a history of HTN, HLD, hemorrhagic CVA, vascular dementia, severe tricuspid regurg, multifocal atrial tachycardia, and pulmonary HTN who presents to the ED on 09/28 with altered mental status. Acute encephalopathy/metabolic secondary to hyponatremia vs progressive dementia vs other--ongoing -Admit to telemetry. No acute events overnight. Pt in sinus rhythm/sinus arrhythmia with a few junctional beats -Sodium 132 on 09/30, stable -IVF and salt tab d/c'd -Serum and urine osmolality both low, urine random sodium WNL -Brain MRI negative for acute disease -Pt also recently started on Restoril but has not taken for several days -UA, urine culture negative -Blood cultures NGTD -Per daughter, pt had been slowly declining last two months but then became acutely much worse prior to arrival -Pt more agitated/combative today, possibly hospital delirium on top of progressive dementia. -Recommend outpatient neurology referral for follow up and management Delirium -Zyprexa Zydis 5 mg PO BID prn agitation -Will start Aricept 5 mg PO hs. Pt may also have elements of Alzheimer's in addition to vascular dementia. Some studies shown Aricept beneficial in vascular dementia as well Hypokalemia--resolving -Potassium 3.6 on 09/30, up from 3.2 HTN/HLD--stable - Will stop triamterene/HCTZ indefinitely - Can resume lisinopril 10 mg PO qd - Continue Toprol XL 12.5 mg PO qd and Zocor 10 mg PO qd H/o hemorrhagic CVA--daughter states last time pt had speech abnormality was her brain bleed -Head CT negative for hemorrhage, MRI negative as above Chronic diastolic CHF--stable -Mild volume overload on CXR but asymptomatic -Lower extremity edema improved -Continue metoprolol, lisinopril -Resume Lasix 20 mg PO qd Callous on toe w/ulcer -Consult wound care nurse, recommended podiatry consult -Consult podiatry, appreciate recs DVT prophylaxis -Heparin 5000 units SC q8h Code Status -Level V, DO NOT RESUSCITATE Dispo -Lives alone -PT/OT recommend 24/ supervision. If family cannot provide, will need SNF placement -Family looking into possible home hospice, requesting palliative consult. Will hold off for now until pt calmer so decision can be discussed together Continued [facility] stay due to: home environment unsafe for pt
--- NOTE | 2017-09-30 20:23 | DIAGNOSTIC IMAGING REPORT ---
L FOOT MIN 3 VIEWS ROUTINE HISTORY: 87 years-old Female ulceration acute left foot pain and swelling with foot ulcer COMPARISON: None available TECHNIQUE: 3 views of the left foot FINDINGS: Bones appear moderately demineralized. Severe first metatarsophalangeal osteoarthritis. Moderate degenerative changes throughout the interphalangeal joints. Mild smooth periosteal thickening about the lateral cortex fourth metatarsal. There is moderate soft tissue prominence about the foot and ankle. Peripheral arterial calcifications are noted. Moderate enthesophytes about the calcaneus. There is no acute fracture, or dislocation. Mild cortical indistinctness and irregularity about the third distal phalanx is noted. IMPRESSION: 1. Mild cortical regularity and indistinctness about the third distal phalanx may reflect erosive changes with osteomyelitis in the appropriate clinical setting. Correlate with clinical exam. 2. Moderate soft tissue swelling about the foot without acute fracture or dislocation. 3. Demineralized appearance of the bones with degenerative changes as above. 4. Peripheral arterial disease. The above report was generated using voice recognition software. It may contain grammatical, syntax or spelling errors. Electronically signed by: Tanner Wright M.D. 09/30/2017 8:22 PM Dictated Date/Time: 09/30/2017 8:18 PM
[2017-09-30] MEDS: DONEPEZIL HCL 5 MG TAB PO SCH (20:47)
[2017-09-30] MEDS: SIMVASTATIN 10 MG TAB PO SCH (20:52)
[2017-09-30] MEDS ORDERED: CEPHALEXIN MONOHYDRATE 250 MG CAP PO SCH (21:00)
[2017-09-30] MEDS ORDERED: VANCOMYCIN CONSULT ACTIVE PRN (21:30)
[2017-09-30 21:56] VITALS: BP 147/75; PULSE 62; TEMP 36.6; O2SAT 96
[2017-09-30] MEDS ORDERED: VANCOMYCIN IV 1,250 MG in SODIUM CHLORIDE 0.9% 250ML 250 ML IV ONE (22:00)
--- NOTE | 2017-09-30 23:32 | ORTHOPEDIC CONSULTATION ---
DATE OF CONSULTATION: 09/30/2017 HISTORY OF PRESENT ILLNESS: An 87-year-old female seen at bedside at the request of the hospitalist due to an ulceration on the left second digit. The patient was admitted on 09/28/2017 with an acute mental status change to rule out an acute metabolic encephalopathy secondary to hyponatremia, possibly from the hydrochlorothiazide. The patient is currently being worked up and seen at bedside with 24-hour monitor. She answers questions. Denies fevers, chills, or night sweats; however, cannot provide a history regarding the ulceration on the left second digit. Chart reviewed. PAST SURGICAL HISTORY: No past surgical history noted on chart. PAST MEDICAL HISTORY: Vascular dementia, questionable chronic diastolic congestive heart failure, hemorrhagic stroke, hypertension, tricuspid regurg, atrial tachycardia, pulmonary hypertension, insomnia. MEDICATIONS: Per chart. ALLERGIES: SULFA DRUGS. FAMILY HISTORY: Diabetes, emphysema, gastric cancer, and an TX. SOCIAL HISTORY: The patient has never smoked, lives close to family members at home, is . PHYSICAL EXAMINATION: VITAL SIGNS: Stable and afebrile. Blood pressure 151/75, heart rate 100. LOWER EXTREMITIES: DP palpable, PT palpable 1/4. Absence of digital hair is noted. Multiple telangiectasias and varicosities are noted. Pitting edema to the legs +4/6 pretibial area distal to the knee to the foot. There is mild focal edema noted to the left second digit. DERM: There is a hyperkeratotic tissue covering the ulceration less than 0.5 cm over the DIP joint medially to the left second digit with hyperkeratotic rim. Ulcer does not probe as no malodor; however, there is some erythema to the level of the metatarsophalangeal joint. No active drainage to culture is visible. There is no tracking noted. NEUROLOGICAL: Epicritic sensation grossly intact. MUSCULOSKELETAL: PIPJ contracture noted, left second. Enlarged dorsal medial eminence, left first. PIPJ contracture noted 2 through 5, mild. LABS: Blood cultures negative to date. WBC count within normal limits. IMPRESSION: 1. Cellulitis, left second digit. 2. Subcutaneous ulceration DIP joint medially of the left second digit secondary to digital deformity. 3. HIV. 4. Hammertoes. 5. Admission for acute mental status change and hyponatremia. TREATMENT: 1. Oral antibiotic ordered. We will continue to monitor. 2. Debridement of ulceration with 15-blade to the level of subcutaneous tissue, left second digit. Recommended ordered to bedside to apply over the left second interspace to prevent ulceration. X-ray ordered to left foot. We will continue to follow while an inpatient.
[2017-10-01 02:58] VITALS: BP 105/67; PULSE 89; TEMP 36.8; O2SAT 92
[2017-10-01] MEDS: HEPARIN SOD 5000 UNIT/0.5 ML CARP SQ SCH ×3 (05:53→21:35)
[2017-10-01 06:14] LABS: HEMATOCRIT 33.5 % (37-47); MEAN CELL VOLUME 93.6 fL (80-100); MEAN CORPUSCULAR HEMOGLOBIN 33.5 pg (25-34); MEAN CORPUSCULAR HGB CONC 35.8 g/dl (32-36); MEAN PLATELET VOLUME 9.5 fL (7.4-10.4); PLATELET COUNT 220 K/uL (130-400); RED CELL DISTRIBUTION WIDTH SD 44.2 fL (36.4-46.3); WHITE BLOOD COUNT 5.83 K/uL (4.8-10.8)
[2017-10-01 06:51] LABS: CALCIUM 8.7 mg/dl (8.5-10.1); CREATININE 0.75 mg/dl (0.60-1.20); POTASSIUM 3.9 mmol/L (3.5-5.1)
[2017-10-01 07:32] VITALS: BP_SYST 146; BP_SYST 148; BP_DIAS 72; BP_DIAS 81; PULSE 71; TEMP 36.6; O2SAT 93
[2017-10-01] MEDS: CYANOCOBALAMIN 500 MCG TAB (VIT B-12) PO SCH (07:50)
[2017-10-01] MEDS: LISINOPRIL 10 MG TAB PO SCH (07:50)
[2017-10-01] MEDS: METOPROLOL SUCC 25MG EXT REL TAB PO SCH (07:50)
[2017-10-01] MEDS: FUROSEMIDE 20 MG TAB PO SCH (07:51)
[2017-10-01] MEDS ORDERED: VANCOMYCIN IV 1,000 MG in SODIUM CHLORIDE 0.9% 250ML 250 ML IV SCH (09:00)
[2017-10-01 11:32] VITALS: BP 118/63; PULSE 65; TEMP 36.7; O2SAT 96
--- NOTE | 2017-10-01 11:48 | Pharmacy Progress Note ---
Pharmacy Abx Initial Consult Date of Service Oct 01, 2017. Pharmacy Dosing Scope Date of Consult: 09/30/17 Consultation requested by: Dr. Goncalves Pharmacy is consulted to initiate Vancomycin IV dosing therapy, order appropriate labs and adjust drug dose/frequency. Subjective The patient is a 87 year old female admitted on Sep 28, 2017 at 12:02. Objective Height (Feet): 5 Height (Inches): 0.00 Weight (Kilograms): 58.200 (BMI 25.1) Vital Signs (Past 12Hrs) Vital Signs Past 12 Hours Date Time Temp Pulse Resp B/P (MAP) Pulse Ox O2 Delivery O2 Flow Rate FiO2 10/01/17 11:32 36.7 65 20 118/63 (81) 96 Room Air 10/01/17 08:00 Room Air 10/01/17 07:32 36.6 71 20 148/72 (97) 93 Room Air 146/81 (102) 10/01/17 02:58 36.8 89 18 105/67 (80) 92 Room Air 10/01/17 00:10 Room Air Lab Results (24Hrs) Laboratory Tests (24 Hours) Test 09/30/17 22:11 10/01/17 05:42 C-Reactive Protein 0.91 mg/dl (0-0.29) H Erythrocyte Sedimentation Rate 21 mm/hr (0-21) White Blood Count 5.83 K/uL (4.8-10.8) Item Value Date Time Creatinine 0.75 mg/dl 10/01/17 0542 Est Creatinine Clear Calc Drug Dose 41.4 ml/min 10/01/17 0542 Micro Results Date/Time Source Procedure Growth Status 09/28/17 22:46 Blood Blood Culture - Preliminary NO GROWTH TO DATE. Resulted 09/28/17 21:45 Blood Blood Culture - Preliminary NO GROWTH TO DATE. Resulted 09/28/17 13:45 Urine , Clean Catch Urine Culture - Final MORE THAN THREE TYPES OF ORGANISMS LA... Complete Risk Factors for Resistance * Antimicrobial use within the last 90 days Macrobid for suspected UTI Assessment & Plan Assessment 87 year old female with admitted having acute left foot pain/swelling with ulceration of left 2nd digit. Foot x-ray shows possible erosive changes with osteomyelitis. Moderate soft tissue swelling of the foot w/o acute fracture or dislocation. Plan Vancomycin for treatment of possible osteomyelitis Vancomycin IV * Estimated Pkinetic parameters: Vd 0.7 L/kg; Barrett ~0.039 hr-1; T1/2 ~17.7 hr; CrCl 41.4 * Loading dose: 1250 mg (~22 mg/kg) * Maintenance dose: 750 mg IV (~13 mg/kg) every 18 hours * Goal trough level for osteomyelitis : 15 to 20 mcg/mL * Trough level ordered for 10/03/17 * Patient may not be at steady state with trough level, but will assess since we are dosing near the estimated half life. Pharmacy will continue to follow and will adjust dose/frequency as necessary. Thank you.
--- NOTE | 2017-10-01 15:22 | DIAGNOSTIC IMAGING REPORT ---
L LOWER EXT NONJOINT WITHOUT HISTORY: 87 years-old Female r/o osteomyelitis, third distal phalanx acute pain and swelling of the left forefoot with question osteomyelitis of the distal phalanx third digit on comparison radiographs COMPARISON: Left foot radiographs 09/30/2017 TECHNIQUE: Multiplanar multisequence MRI of the left forefoot was obtained without use of IV contrast. FINDINGS: Motion degraded exam. 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 Moderate degenerative changes are seen throughout the remaining interphalangeal joints with joint space narrowing, chondral thinning and marginal osteophytosis. Subcortical cystic changes with marginal osteophytosis about the first MTP joint. Subcortical cystic changes are also noted within the proximal metatarsals. Mild smooth periosteal thickening about the lateral cortex fourth metatarsal. T1 marrow signal is preserved within the third distal phalanx excluding acute osteomyelitis. The findings discussed on comparison radiographs are likely projectional. Mild flexion deformity throughout the interphalangeal joints with extension deformities throughout the metatarsal phalangeal joints. Moderate atrophy about the intrinsic musculature of the forefoot. Moderate subcutaneous edema without drainable fluid collection. No evidence of perineural fibrosis (Carias neuroma) or intermetatarsal bursitis. Imaged flexor and extensor tendons appear intact. Plantar plates also appear to be intact. Lisfranc ligament is identified and appears intact. IMPRESSION: 1. Motion degraded exam without evidence of acute osteomyelitis. 2. Mild smooth periosteal thickening noted about the lateral cortex fourth metatarsal diaphysis is indeterminate and may be related to stress changes or venous stasis. 3. Degenerative changes about the forefoot as above including severe osteoarthritis about the first MTP joint with prominent subcortical cystic changes and marginal osteophytosis. 4. Moderate atrophy about the intrinsic musculature of the forefoot is likely secondary to long-standing denervation changes with diabetes mellitus. 5. Moderate subcutaneous edema throughout the forefoot may be secondary to cellulitis, venous stasis or lymphedema. The above report was generated using voice recognition software. It may contain grammatical, syntax or spelling errors. Electronically signed by: Tanner Wright M.D. 10/01/2017 3:21 PM Dictated Date/Time: 10/01/2017 3:13 PM
--- NOTE | 2017-10-01 15:32 | Hospitalist Progress Note ---
Hospitalist Progress Note Date of Service Oct 01, 2017. Subjective Pt evaluation today including: conversation w/ patient, conversation w/ family (spoke with Swathi shah Sarah on phone), physical exam, chart review, lab review, review of studies, conversation w/ lead consultant (spoke with Dr. Vaca), review of inpatient medication list Voiding: no voiding problems Unable to obtain reliable ROS due to mental status. Additional Comments: Unable to obtain reliable ROS due to mental status. Objective Vital Signs Date Time Temp Pulse Resp B/P (MAP) Pulse Ox O2 Delivery O2 Flow Rate FiO2 10/01/17 11:32 36.7 65 20 118/63 (81) 96 Room Air 10/01/17 08:00 Room Air 10/01/17 07:32 36.6 71 20 148/72 (97) 93 Room Air 146/81 (102) 10/01/17 02:58 36.8 89 18 105/67 (80) 92 Room Air 10/01/17 00:10 Room Air 09/30/17 21:56 36.6 62 18 147/75 (99) 96 Room Air 09/30/17 16:00 94 Room Air Physical Exam Notes: General appearance: Well-developed, well-nourished, no apparent distress Head: Normocephalic, atraumatic Eyes: Normal inspection, PERRL, EOMI ENT: Normal ENT inspection, hearing grossly normal, pharynx normal Neck: Supple, no JVD, trachea midline Respiratory/Chest: +Decreased breath sounds in bases. Lungs clear to auscultation, no respiratory distress Cardiovascular: +Systolic murmur. Regular rate & rhythm, no gallop Abdomen/GI: +Distended. Normal bowel sounds, non-tender Extremities/Musculoskeletal: +Wound on medial aspect of left second toe. No drainage. Erythema of left second toe. No calf tenderness, no pitting pedal edema Neurological/Psych: +Much more pleasant today, calm and cooperative. Confused and disoriented. Alert, oriented to person only. Skin: Normal color, warm/dry, no rash Laboratory Results Last 24 Hours Test 09/30/17 22:11 10/01/17 05:42 Erythrocyte Sedimentation Rate 21 mm/hr C-Reactive Protein 0.91 mg/dl White Blood Count 5.83 K/uL Red Blood Count 3.58 M/uL Hemoglobin 12.0 g/dL Hematocrit 33.5 % Mean Corpuscular Volume 93.6 fL Mean Corpuscular Hemoglobin 33.5 pg Mean Corpuscular Hemoglobin Concent 35.8 g/dl RDW Standard Deviation 44.2 fL RDW Coefficient of Variation 13.0 % Platelet Count 220 K/uL Mean Platelet Volume 9.5 fL Sodium Level 135 mmol/L Potassium Level 3.9 mmol/L Chloride Level 99 mmol/L Carbon Dioxide Level 29 mmol/L Anion Gap 7.0 mmol/L Blood Urea Nitrogen 16 mg/dl Creatinine 0.75 mg/dl Est Creatinine Clear Calc Drug Dose 41.4 ml/min Estimated GFR () 82.5 Estimated GFR (Non- 71.2 BUN/Creatinine Ratio 21.8 Random Glucose 104 mg/dl Calcium Level 8.7 mg/dl Diagnostic Results Reviewed the following studies and agree with interpretation as follows: L FOOT MIN 3 VIEWS ROUTINE HISTORY: 87 years-old Female ulceration acute left foot pain and swelling with foot ulcer COMPARISON: None available TECHNIQUE: 3 views of the left foot FINDINGS: Bones appear moderately demineralized. Severe first metatarsophalangeal osteoarthritis. Moderate degenerative changes throughout the interphalangeal joints. Mild smooth periosteal thickening about the lateral cortex fourth metatarsal. There is moderate soft tissue prominence about the foot and ankle. Peripheral arterial calcifications are noted. Moderate enthesophytes about the calcaneus. There is no acute fracture, or dislocation. Mild cortical indistinctness and irregularity about the third distal phalanx is noted. IMPRESSION: 1. Mild cortical regularity and indistinctness about the third distal phalanx may reflect erosive changes with osteomyelitis in the appropriate clinical setting. Correlate with clinical exam. 2. Moderate soft tissue swelling about the foot without acute fracture or dislocation. 3. Demineralized appearance of the bones with degenerative changes as above. 4. Peripheral arterial disease. L LOWER EXT NONJOINT WITHOUT HISTORY: 87 years-old Female r/o osteomyelitis, third distal phalanx acute pain and swelling of the left forefoot with question osteomyelitis of the distal phalanx third digit on comparison radiographs COMPARISON: Left foot radiographs 09/30/2017 TECHNIQUE: Multiplanar multisequence MRI of the left forefoot was obtained without use of IV contrast. FINDINGS: Motion degraded exam. 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 Moderate degenerative changes are seen throughout the remaining interphalangeal joints with joint space narrowing, chondral thinning and marginal osteophytosis. Subcortical cystic changes with marginal osteophytosis about the first MTP joint. Subcortical cystic changes are also noted within the proximal metatarsals. Mild smooth periosteal thickening about the lateral cortex fourth metatarsal. T1 marrow signal is preserved within the third distal phalanx excluding acute osteomyelitis. The findings discussed on comparison radiographs are likely projectional. Mild flexion deformity throughout the interphalangeal joints with extension deformities throughout the metatarsal phalangeal joints. Moderate atrophy about the intrinsic musculature of the forefoot. Moderate subcutaneous edema without drainable fluid collection. No evidence of perineural fibrosis (Carias neuroma) or intermetatarsal bursitis. Imaged flexor and extensor tendons appear intact. Plantar plates also appear to be intact. Lisfranc ligament is identified and appears intact. IMPRESSION: 1. Motion degraded exam without evidence of acute osteomyelitis. 2. Mild smooth periosteal thickening noted about the lateral cortex fourth metatarsal diaphysis is indeterminate and may be related to stress changes or venous stasis. 3. Degenerative changes about the forefoot as above including severe osteoarthritis about the first MTP joint with prominent subcortical cystic changes and marginal osteophytosis. 4. Moderate atrophy about the intrinsic musculature of the forefoot is likely secondary to long-standing denervation changes with diabetes mellitus. 5. Moderate subcutaneous edema throughout the forefoot may be secondary to cellulitis, venous stasis or lymphedema. Assessment and Plan 87 y/o female with a history of HTN, HLD, hemorrhagic CVA, vascular dementia, severe tricuspid regurg, multifocal atrial tachycardia, and pulmonary HTN who presents to the ED on 09/28 with altered mental status. Acute encephalopathy/metabolic secondary to hyponatremia vs progressive dementia vs other--ongoing -Admit to telemetry. No acute events overnight. Pt in sinus rhythm/sinus tachycardia HR in 70s-low 100s. Stable on tele, will remove monitor -Sodium 135 on 10/01, up from 132 -IVF and salt tab d/c'd -Serum and urine osmolality both low, urine random sodium WNL -Brain MRI negative for acute disease -Pt also recently started on Restoril but has not taken for several days -UA, urine culture negative -Blood cultures NGTD -Per daughter, pt had been slowly declining last two months but then became acutely much worse prior to arrival -Recommend outpatient neurology referral for follow up and management -Continue Aricept 5 mg PO hs, continue for 4-6 weeks and can then titrate up to 10 mg. Some studies show this can also help in vascular dementia -Zyprexa Zydis 5 mg PO BID prn agitation -Pt calmer today, did not require any Zyprexa Hypokalemia--resolved Cellulitis, callous on toe w/ulcer -Consult wound care nurse, recommended podiatry consult -Consult podiatry, appreciate recs: Spoke with Dr. Vaca. Appears to have cellulitis on left second toe. Given foot x-ray findings, agree with MRI and vanco. Toe ulcer was debrided at bedside, recommend negrete's wool for toe interspaces -Foot x-ray shows mild cortical regularity and indistinctness about the third distal phalanx which may reflect erosive changes with osteomyelitis -MRI of left foot negative for acute osteomyelitis but does show subcutaneous edema consistent w/cellulitis -Will change vancomycin back to Keflex PO -Orthopedics consulted Abdominal distention -Pt with 3 BMs today after receiving Miralax last night -Passing gas, no N/V or pain -Will hold off on KUB for now and continue to monitor HTN/HLD--stable - Will stop triamterene/HCTZ indefinitely - Can resume lisinopril 10 mg PO qd - Continue Toprol XL 12.5 mg PO qd and Zocor 10 mg PO qd H/o hemorrhagic CVA--daughter states last time pt had speech abnormality was her brain bleed -Head CT negative for hemorrhage, MRI negative as above Chronic diastolic CHF--stable -Mild volume overload on CXR but asymptomatic -Lower extremity edema improved -Continue metoprolol, lisinopril -Resume Lasix 20 mg PO qd DVT prophylaxis -Heparin 5000 units SC q8h Code Status -Level V, DO NOT RESUSCITATE Dispo -Lives alone -PT/OT recommend 24/7 supervision. If family cannot provide, will need SNF placement -Family looking into possible home hospice, palliative consulted placed DaughterJaelyn, can be reached at: [phone] (cell). Sarah's info also in chart
[2017-10-01 15:37] VITALS: BP 124/60; PULSE 59; TEMP 36.7; O2SAT 95
[2017-10-01 16:00] VITALS: O2SAT 94
[2017-10-01] MEDS ORDERED: VANCOMYCIN IV 750 MG in SODIUM CHLORIDE 0.9% 250ML 250 ML IV SCH (16:00)
[2017-10-01] MEDS: SIMVASTATIN 10 MG TAB PO SCH (21:26)
[2017-10-01] MEDS: DONEPEZIL HCL 5 MG TAB PO SCH (21:27)
[2017-10-01] MEDS: CEPHALEXIN MONOHYDRATE 500 MG CAP PO SCH (21:27)
--- NOTE | 2017-10-01 22:56 | ORTHOPEDIC CONSULTATION ---
DATE OF CONSULTATION: 10/01/2017 HISTORY OF PRESENT ILLNESS: This is an 87-year-old woman seen at request of Dr. Jameson for a second toe cellulitis and possibility of osteomyelitis of the third distal phalanx. The patient had been seen previously by Dr. Vaca for the second toe primarily. Then, radiographs demonstrated some possibility of osteomyelitis and orthopedics was consulted at that time. The patient was admitted primarily for issues related to worsening dementia and mental status with metabolic encephalopathy secondary to hyponatremia versus other causation. She has had multiple other medical comorbidities which had given her difficulty. PAST MEDICAL HISTORY: Vascular dementia, history of hemorrhagic CVA, hypertension, hyperlipidemia, insomnia, severe tricuspid regurgitation, multifocal atrial tachycardia, and pulmonary hypertension. PAST SURGICAL HISTORY: Noncontributory to the assessment today. ALLERGIES: SULFAMETHOXAZOLE AND TRIMETHOPRIM. MEDICATIONS: Please note the list included with the medical record. SOCIAL HISTORY: Denies tobacco, alcohol or drug use. She is , lives with her family. She is retired. PHYSICAL EXAMINATION: GENERAL: This is an 87-year-old woman sitting supine in the bedside table with a 1:1 monitor due to confusion. The patient answers most questions appropriately; however, needs redirection several times during the examination. She is very pleasant with appropriate affect. She is wearing glasses and is conversant and examination of the left foot demonstrates skin warm, dry, and intact. Cap refill less than 2 seconds. Foot is warm. The dorsalis pedis is 2/4, posterior tibial pulse is 1/4. There is limited if any hair growth in bilateral lower extremities. No significant skin ulcers. There is ulceration of the distal tip of the second toe which had been debrided in left foot, fusiform edema with mild erythema noted at the second toe. Multiple hammertoe and clawtoe deformities by the left foot with hallux valgus deformity. Between the first interdigital space and the second interdigital space lies maceration with foul odor and clavus due to compression and pressure between the toes. There is no exposed bone. No exposed deep soft tissue. There is lambswool type of substance between the first and second interdigital spaces as consistent with Dr. Vaca's recommendations. Radiographs and MRI reviewed findings on radiographs related to the third distal phalanx, perhaps related to projectional angulation of the third toe in relation to the remainder of the lesser toes. MRI not consistent with any type of osteomyelitis of the third toe. A fusiform cellulitis noted of the second toe. No obvious fractures. IMPRESSION: 1. Left second toe cellulitis. 2. Clavus between the first and second interdigital spaces. 3. Multiple claw toes and hammertoes. 4. Hallux valgus deformity. 5. Diminished vascularity likely due to small vessel disease. RECOMMENDATIONS: Continue with use of lambswool and another drying agent to the 1st and 2nd interdigital spaces. Continue IV antibiotics until stabilized and then likely continue course of therapy for at least 6 weeks with oral antibiotics. Follow up in clinic either with Dr. Vaca or with Dr. Johnson up to the patient at this point. Thank you for the opportunity to consult in the care of this patient.
[2017-10-01 23:03] VITALS: BP 164/75; PULSE 72; TEMP 36.7; O2SAT 93
--- NOTE | 2017-10-02 00:31 | BLINK REPORT ---
SUBJECTIVE: The patient is seen at bedside with nurse's aide without complaints. Chart reviewed. Denies fevers, chills, and night sweats, although the patient is not able to reliably give a history due to mental status changes. PHYSICAL EXAMINATION: VITAL SIGNS: Afebrile, pulse 59, respirations 20, blood pressure 124/60, room air is 95. EXTREMITIES: Digital pulses palpable. Mild swelling noted in left second digit. Derm ulceration relatively unchanged. No active drainage, redness, and erythema unchanged. NEUROLOGIC: Epicritic sensation grossly intact. MUSCULOSKELETAL: The left second PIPJ contracture and DIP joint contracture with enlarged dorsomedial eminence of left first MTPJ. LABS: MRI noted motion on the exam, severe osteoarthritis, first MTPJ, subcortical cyst with osteophytes around the first MTPJ, smooth periosteal thickening lateral cortex fourth metatarsal. The area of concern over the left second digit not addressed in the MRI or is showing lack of findings. There is no evidence of acute osteomyelitis noted on the MRI. X-ray shows cortical irregularity around the distal phalanx of the 3rd, again not related to the area of ulceration. Blood culture shows no growth to date. White count within normal limits. IMPRESSION: 1. Ulceration, left second digit subcutaneous. 2. Cellulitis, left second digit. 3. Acute mental status changes. PLAN: 1. Continue antibiotics. We will review x-rays and MRI with radiology tomorrow as films are unavailable to view on the electronic health record system, unable to pull this up tonight. However, the report shows changes on the 3rd and 4th toes, does not mention the second toe which is area of the ulceration. Continue Lamisil, continue antibiotics. Defer cultures. There is no active drainage. May discontinue Keflex if continued IV antibiotics, currently on Keflex, appears to have been changed. We will leave this to medicine to decide. Will continue to monitor while as an inpatient. 2. Discussed the case with Harper Morales today earlier on the phone. ORTHOPEDIC CONSULT: . There is no podiatry available.
[2017-10-02] MEDS: HEPARIN SOD 5000 UNIT/0.5 ML CARP SQ SCH ×3 (06:04→20:37)
[2017-10-02 06:09] LABS: HEMATOCRIT 31.3 % (37-47); MEAN CELL VOLUME 95.7 fL (80-100); MEAN CORPUSCULAR HEMOGLOBIN 33.6 pg (25-34); MEAN CORPUSCULAR HGB CONC 35.1 g/dl (32-36); MEAN PLATELET VOLUME 8.9 fL (7.4-10.4); PLATELET COUNT 186 K/uL (130-400); RED CELL DISTRIBUTION WIDTH SD 45.6 fL (36.4-46.3)
[2017-10-02 06:35] LABS: CALCIUM 8.4 mg/dl (8.5-10.1); CREATININE 1.04 mg/dl (0.60-1.20); POTASSIUM 3.7 mmol/L (3.5-5.1)
[2017-10-02 08:12] VITALS: BP 144/85; PULSE 77; TEMP 36.7; O2SAT 95
[2017-10-02] MEDS: FUROSEMIDE 20 MG TAB PO SCH (08:15)
[2017-10-02] MEDS: METOPROLOL SUCC 25MG EXT REL TAB PO SCH (08:15)
[2017-10-02] MEDS: LISINOPRIL 10 MG TAB PO SCH (08:16)
[2017-10-02] MEDS: CEPHALEXIN MONOHYDRATE 500 MG CAP PO SCH ×2 (08:16→20:30)
[2017-10-02] MEDS: CYANOCOBALAMIN 500 MCG TAB (VIT B-12) PO SCH (08:16)
--- NOTE | 2017-10-02 10:35 | Palliative Care Consultation ---
Consultation Date of Consultation: Oct 02, 2017. Requesting Physician: Harper Morales PA-C Attending Physician: KRISTINA Iglesias Reason for Consultation: Goals of care History of Present Illness This 87 year old female patient with PMH dementia, hemorrhagic CVA, severe tricuspid regurgitation, and others listed below, presented to the hospital with altered mental status. She was found to have hyponatremia and cellulitis of toe. Patient has reportedly been progressively getting worse as far as her mental status per the daughters. They are uncertain of where to go from here. Palliative care is consulted to assist with establishing goals of care. I met with the patient in room 275-2. She is awake, sitting in chair, pleasantly confused with 1:1 at bedside. She stated, "I'm sitting here in the hospital." When I asked further questions, she answered inappropriately by reading her list of words from the word search she was doing. She appeared comfortable and cooperative during my visit. I called patient's daughter, Jaelyn. Swathi had many questions about dementia, the progression of the disease, and where her mother is at. we spent a great deal of time discussing progression of dementia as well as future possible complications and issues. Se was appreciative and verbalized understanding. She is pretty certain that she and her sister Sarah (patient's other daughter) would like patient to go to SNF. They will use that time to decide whether or not they can take their mother back home. We talked about the possibility of hospice in the future as well. I do not think patient qualifies for hospice at this time. Past Medical/Surgical History Medical History: 1. Vascular Dementia 2. H/O Hemorrhagic CVA 3. HTN 4. HLD 5. Insomnia 6. Severe Tricuspid Regurgitation 7. Multifocal Atrial Tachycardia 8. Pulmonary HTN Social History Smoking Status: Never Smoker History of Alcohol Use: No Marital Status: Housing Status: lives with family Occupation Status: retired Review of Systems unable to obtain due to confusion/disorientation Allergies Coded Allergies: Sulfamethoxazole w/Trimethoprim (Verified Allergy, Unknown, nausea, diarrhea, 09/28/17) allscripts Medications Current Inpatient Medications Medications (Trade) Dose Ordered Sig/Concepción Route Start Time Stop Time Status Last Admin Dose Admin Heparin Sodium (Porcine) (Heparin Sq 5000 Unit/0.5ml) 5,000 unit Q8 SQ 09/28/17 14:00 10/28/17 13:59 10/02/17 06:04 5,000 UNIT Acetaminophen (Tylenol Tab) 650 mg Q4H PRN PO 09/28/17 12:00 10/28/17 11:59 Al Hydrox/Mg Hydrox/Simethicone (Maalox Max Susp) 15 ml Q4H PRN PO 09/28/17 12:00 10/28/17 11:59 Magnesium Hydroxide (Milk Of Magnesia Susp) 30 ml Q12H PRN PO 09/28/17 12:00 10/28/17 11:59 Ondansetron HCl (Zofran Inj) 4 mg Q6H PRN IV 09/28/17 12:00 10/28/17 11:59 Polyethylene (Miralax Powder Packet) 17 gm DAILY PRN PO 09/28/17 12:00 10/28/17 11:59 09/30/17 21:23 17 GM Cyanocobalamin (Vitamin B-12 Tab) 500 mcg DAILY PO 09/29/17 09:00 10/29/17 08:59 10/02/17 08:16 500 MCG Metoprolol Succinate (Toprol Xl Tab) 12.5 mg DAILY PO 09/29/17 09:00 10/29/17 08:59 10/02/17 08:15 12.5 MG Simvastatin (Zocor Tab) 10 mg QPM PO 09/28/17 21:00 10/28/17 20:59 10/01/17 21:26 10 MG Gadobutrol (Gadavist) 5.5 mmol UD PRN IV 09/28/17 17:00 10/02/17 16:59 Lisinopril (Zestril Tab) 10 mg QAM PO 09/30/17 09:00 10/30/17 08:59 10/02/17 08:16 10 MG Olanzapine (Zyprexa Zydis Od Tab) 5 mg BID PRN PO 09/30/17 17:00 10/30/17 16:59 Donepezil HCl (Aricept Tab) 5 mg HS PO 09/30/17 21:00 10/30/17 20:59 10/01/17 21:27 5 MG Furosemide (Lasix Tab) 20 mg DAILY PO 10/01/17 09:00 10/31/17 08:59 10/02/17 08:15 20 MG Cephalexin Monohydrate (Keflex Cap) 500 mg BID PO 10/01/17 21:00 10/11/17 20:59 10/02/17 08:16 500 MG Physical Exam Date Time Temp Pulse Resp B/P (MAP) Pulse Ox O2 Delivery O2 Flow Rate FiO2 10/02/17 08:12 36.7 77 18 144/85 (104) 95 Room Air 10/02/17 08:00 Room Air 10/02/17 00:00 Room Air 10/01/17 23:03 36.7 72 20 164/75 (104) 93 Room Air 10/01/17 16:00 94 Room Air 10/01/17 15:37 36.7 59 20 124/60 (81) 95 Room Air 10/01/17 11:32 36.7 65 20 118/63 (81) 96 Room Air General Appearance: no apparent distress ENT: hearing grossly normal Neck: supple, no JVD Respiratory: lungs clear, no respiratory distress, no accessory muscle use Cardiovascular: regular rate, rhythm, no edema Abdomen: normal bowel sounds, non tender, soft Neurologic/Psychiatric: alert, + disoriented Skin: normal color Laboratory Results Last 24 Hours Test 10/02/17 06:00 White Blood Count 6.10 K/uL Red Blood Count 3.27 M/uL Hemoglobin 11.0 g/dL Hematocrit 31.3 % Mean Corpuscular Volume 95.7 fL Mean Corpuscular Hemoglobin 33.6 pg Mean Corpuscular Hemoglobin Concent 35.1 g/dl RDW Standard Deviation 45.6 fL RDW Coefficient of Variation 13.0 % Platelet Count 186 K/uL Mean Platelet Volume 8.9 fL Sodium Level 135 mmol/L Potassium Level 3.7 mmol/L Chloride Level 99 mmol/L Carbon Dioxide Level 28 mmol/L Anion Gap 8.0 mmol/L Blood Urea Nitrogen 21 mg/dl Creatinine 1.04 mg/dl Est Creatinine Clear Calc Drug Dose 29.9 ml/min Estimated GFR () 55.6 Estimated GFR (Non- 47.9 BUN/Creatinine Ratio 20.2 Random Glucose 92 mg/dl Calcium Level 8.4 mg/dl Assessment & Plan Problem list: Confusion/disorientation Hyponatremia- resolved Toe ulcer/cellulitis Dementia, vascular Goals of care Palliative care recs: discussed with patient's daughter Yonatan Echevarria [employer]PER, and case management. -Patient is DNR. -Plan is for SNF after hospitalization-- family will use that time to determine whether or not they can take patient back home. Patient normally lives home alone with one daughter living right next door who checks on her 5-6 times/day, and other daughter stopping in frequently as well. -Lengthy discussion about progression of dementia, future possible complications , FAST score, etc. Also discussed possibility of hospice in future. I do not think the patient qualifies for hospice at this time, but that could change quickly. Thank you kindly for this consult. I will follow as needed. Total time spent 70 minutes with >50% of time spent counseling/discussing prognosis with patient's family as well as collaborating with [employer] ST[employer] and case management to coordinate care on nursing unit. Supervising Physician Collaborating physician Dr. Bailee Miranda Patient seen and examined, no family at bedside, one-to-one sitter at bedside. Patient is awake and alert, no acute distress sitting up in the chair next to her bed doing word finding puzzles. Patient denies fever, chills, chest pain, shortness of breath, or GI issues. Patient with significant cognitive deficits-not able to give much of a history. PE: No acute distress Respiratory: Unlabored ,appears well compensated CV: Regular rate Abdomen: Nondistended extremities no edema Skin warm, no pallor Neuro: Significant cognitive deficits Agree with above note, exam, assessment and plan. Patient is planned to go to skilled facility for PT/OT-patient will be further evaluated regarding her ability to live alone. The daughter lives next door and checks on her several times a day. Referral made to [facility] for inpatient rehab.
--- NOTE | 2017-10-02 13:28 | Hospitalist Progress Note ---
Hospitalist Progress Note Date of Service Oct 02, 2017. (Esperanza Boyd ., KRISTINA) Subjective Pt evaluation today including: conversation w/ patient, physical exam, chart review, lab review, review of inpatient medication list Voiding: no voiding problems Ms. Navarrete is pleasant and disoriented, sitting in chair, 1:1 in room. ROS Constitutional: no chills, aches, sweats or fever Respiratory: no sob,cough, sputum, or wheezing Cardiac: no chest pain, palpitations, edema, orthopnea or lightheadedness GI: no abdominal pain, nausea, vomiting, diarrhea or constipation : no dysuria or hesitancy Extremities: no joint pain or weakness Skin: no rash All other systems reviewed and negative (Esperanza Boyd CRNP) Medications Medications Administered Medications (Trade) Dose Ordered Sig/Concepción Route Start Time Stop Time Status Last Admin Dose Admin Heparin Sodium (Porcine) (Heparin Sq 5000 Unit/0.5ml) 5,000 unit Q8 SQ 09/28/17 14:00 10/28/17 13:59 10/02/17 06:04 5,000 UNIT Polyethylene (Miralax Powder Packet) 17 gm DAILY PRN PO 09/28/17 12:00 10/28/17 11:59 09/30/17 21:23 17 GM Cyanocobalamin (Vitamin B-12 Tab) 500 mcg DAILY PO 09/29/17 09:00 10/29/17 08:59 10/02/17 08:16 500 MCG Metoprolol Succinate (Toprol Xl Tab) 12.5 mg DAILY PO 09/29/17 09:00 10/29/17 08:59 10/02/17 08:15 12.5 MG Simvastatin (Zocor Tab) 10 mg QPM PO 09/28/17 21:00 10/28/17 20:59 10/01/17 21:26 10 MG Sodium Chloride (Sodium Chloride Tab) 1 gm ONE STAT PO 09/28/17 14:43 09/29/17 07:50 DC 09/28/17 15:28 1 GM Sodium Chloride 1,000 ml @ 75 mls/hr [id number] IV 09/28/17 15:15 09/29/17 07:50 DC 09/29/17 04:27 75 MLS/HR Potassium Chloride (Klor-Con M10) 20 meq NOW STAT PO 09/29/17 07:49 09/29/17 07:50 DC 09/29/17 08:27 20 MEQ Potassium Chloride 100 ml @ 100 mls/hr Q1H IV 09/29/17 08:00 09/29/17 09:59 DC 09/29/17 09:50 100 MLS/HR Lisinopril (Zestril Tab) 10 mg QAM PO 09/30/17 09:00 10/30/17 08:59 10/02/17 08:16 10 MG Donepezil HCl (Aricept Tab) 5 mg HS PO 09/30/17 21:00 10/30/17 20:59 10/01/17 21:27 5 MG Furosemide (Lasix Tab) 20 mg DAILY PO 10/01/17 09:00 10/31/17 08:59 10/02/17 08:15 20 MG Cephalexin Monohydrate (Keflex Cap) 250 mg QID PO 09/30/17 21:00 09/30/17 21:33 DC 09/30/17 21:13 250 MG Vancomycin HCl 1250 mg/Sodium Chloride 275 ml @ 125 mls/hr TODAY@2200 ONCE IV 09/30/17 22:00 10/01/17 00:11 DC 09/30/17 22:51 125 MLS/HR Cephalexin Monohydrate (Keflex Cap) 500 mg BID PO 10/01/17 21:00 10/11/17 20:59 10/02/17 08:16 500 MG (Esperanza Boyd, KRISTINA) Objective Vital Signs Date Time Temp Pulse Resp B/P (MAP) Pulse Ox O2 Delivery O2 Flow Rate FiO2 10/02/17 08:12 36.7 77 18 144/85 (104) 95 Room Air 10/02/17 08:00 Room Air 10/02/17 00:00 Room Air 10/01/17 23:03 36.7 72 20 164/75 (104) 93 Room Air 10/01/17 16:00 94 Room Air 10/01/17 15:37 36.7 59 20 124/60 (81) 95 Room Air (Esperanza Boyd, BUTTON ATTACHING MACHINE OPERATOR) Physical Exam Notes: General: no distress Eyes: normal inspection, PERLL Respiratory: chest non tender, clear to auscultation, normal breath sounds, no respiratory distress, no accessory muscle use Cardiac: regular rate and rhythm, no rub or gallop, no murmur, no edema, no jvd GI/: active bowel sounds, no abd pain or tenderness, soft, non distended Extremities: normal range of motion, normal strength, non tender Neuro/Psych: alert and oriented to person, normal mood and affect Skin: normal color, dry, lambs wool between left toes, no drainage (Esperanza Boyd CRNP) Laboratory Results Last 24 Hours Test 10/02/17 06:00 White Blood Count 6.10 K/uL Red Blood Count 3.27 M/uL Hemoglobin 11.0 g/dL Hematocrit 31.3 % Mean Corpuscular Volume 95.7 fL Mean Corpuscular Hemoglobin 33.6 pg Mean Corpuscular Hemoglobin Concent 35.1 g/dl RDW Standard Deviation 45.6 fL RDW Coefficient of Variation 13.0 % Platelet Count 186 K/uL Mean Platelet Volume 8.9 fL Sodium Level 135 mmol/L Potassium Level 3.7 mmol/L Chloride Level 99 mmol/L Carbon Dioxide Level 28 mmol/L Anion Gap 8.0 mmol/L Blood Urea Nitrogen 21 mg/dl Creatinine 1.04 mg/dl Est Creatinine Clear Calc Drug Dose 29.9 ml/min Estimated GFR () 55.6 Estimated GFR (Non- 47.9 BUN/Creatinine Ratio 20.2 Random Glucose 92 mg/dl Calcium Level 8.4 mg/dl (Esperanza Boyd CRNP) Assessment and Plan Ms. Navarrete is an 87 y/o female here for hyponatremia and altered mental status Acute encephalopathy/metabolic secondary to hyponatremia vs progressive dementia - hyponatremia resolved -IVF and salt tab d/c'd -Serum and urine osmolality both low, urine random sodium WNL -Brain MRI negative for acute disease -Pt also recently started on Restoril but has not taken for several days -UA, urine culture negative -Blood cultures NGTD -Per daughter, pt had been slowly declining last two months but then became acutely much worse prior to arrival -Recommend outpatient neurology referral for follow up and management -Continue Aricept 5 mg PO hs, continue for 4-6 weeks and can then titrate up to 10 mg. Some studies show this can also help in vascular dementia -Zyprexa Zydis 5 mg PO BID prn agitation - consulted palliative care - per their discussion with family, they are uncomfortable with patient returning home. SNF referral placed for [facility] Hypokalemia--resolved Cellulitis, callous on toe w/ulcer -Consulted wound care nurse, podiatry -MRI showed no osteomyelitis. Dr. 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 Sarah's info also in chart (Esperanza Boyd ., KRISTINA) SHANK TAPPER Physician Supervision Note: I discussed with Esperanza Boyd SHANK TAPPER and agree with findings and plan as documented in the note. Any exceptions or clarifications are listed here: None Patient has some acute delirium on top of dementia or perhaps encephalopathy from her cellulitis which is being treated for continued support with antibiotic care and progress with rehab towards possible disposition Documented By: Carlos Preciado (Carlos Preciado M.D.)
[2017-10-02 15:57] VITALS: BP 150/81; PULSE 67; TEMP 36.5; O2SAT 97
[2017-10-02 16:00] VITALS: O2SAT 94
[2017-10-02] MEDS: SIMVASTATIN 10 MG TAB PO SCH (20:30)
[2017-10-02] MEDS: DONEPEZIL HCL 5 MG TAB PO SCH (20:30)
[2017-10-02 22:25] VITALS: BP 131/84; PULSE 95; TEMP 37.9; O2SAT 91
--- NOTE | 2017-10-02 22:53 | BLINK REPORT ---
SUBJECTIVE: The patient seen at bedside with family. The patient's family notes that she sees Dr. Jones on a regular basis. Chart reviewed including Dr. Johnson's notes. PHYSICAL EXAMINATION: VITAL SIGNS: Afebrile. LOWER EXTREMITY. Digital pulses are palpable. DERMATOLOGIC: Ulceration and discoloration relatively unchanged, left second digit. Mild erythema still exist. No active drainage. NEUROLOGIC: Sensation grossly intact. MUSCULOSKELETAL: Digital deformities unchanged, as noted from previous notes. DATA: CBC is within normal limits. BUN is elevated at 21. Blood cultures are negative. MRI shows no acute osteomyelitis over the area of concern. Left second digit plain films show left second digit showing no periosteal listing on review of actual films. IMPRESSION: 1. Ulceration left second interspace to subcutaneous tissue. 2. Local cellulitis, left foot. 3. Acute mental status changes. TREATMENT: Chart reviewed. Agree with Dr. Johnson's recommendations. The patient currently sees Dr. Jones on a regular basis. Recommended weekly followup with him. This was discussed with the family at bedside. Continue oral antibiotics upon discharge. Recommended continue to offload the second interspace to prevent ulceration from reoccurring. Reconsult if needed.
[2017-10-02 23:33] VITALS: BP 114/71; PULSE 77; TEMP 36.3; O2SAT 94
[2017-10-03] MEDS ORDERED: VANCOMYCIN TROUGH ONE (03:30)
[2017-10-03] MEDS: HEPARIN SOD 5000 UNIT/0.5 ML CARP SQ SCH ×3 (05:45→22:00)
[2017-10-03 07:07] VITALS: BP 128/76; PULSE 66; TEMP 36.9; O2SAT 96
[2017-10-03 07:08] LABS: CALCIUM 8.7 mg/dl (8.5-10.1); CREATININE 0.87 mg/dl (0.60-1.20); POTASSIUM 4.1 mmol/L (3.5-5.1)
[2017-10-03 08:00] LABS: HEMATOCRIT 32.1 % (37-47); HEMOGLOBIN 11.3 g/dL (12.0-16.0); MEAN CORPUSCULAR HEMOGLOBIN 33.4 pg (25-34); MEAN CORPUSCULAR HGB CONC 35.2 g/dl (32-36); MEAN PLATELET VOLUME 9.4 fL (7.4-10.4); PLATELET COUNT 207 K/uL (130-400); RED CELL DISTRIBUTION WIDTH CV 13.1 % (11.5-14.5); RED CELL DISTRIBUTION WIDTH SD 45.7 fL (36.4-46.3); WHITE BLOOD COUNT 5.11 K/uL (4.8-10.8)
[2017-10-03] MEDS: METOPROLOL SUCC 25MG EXT REL TAB PO SCH (08:09)
[2017-10-03] MEDS: LISINOPRIL 10 MG TAB PO SCH (08:09)
[2017-10-03] MEDS: CEPHALEXIN MONOHYDRATE 500 MG CAP PO SCH ×2 (08:09→22:02)
[2017-10-03] MEDS: FUROSEMIDE 20 MG TAB PO SCH (08:10)
[2017-10-03] MEDS: CYANOCOBALAMIN 500 MCG TAB (VIT B-12) PO SCH (08:11)
--- NOTE | 2017-10-03 11:07 | Hospitalist Progress Note ---
Hospitalist Progress Note Date of Service Oct 03, 2017. (Esperanza Boyd ., KRISTINA) Subjective Pt evaluation today including: conversation w/ patient, physical exam, chart review, lab review, review of inpatient medication list Voiding: no voiding problems Ms. Navarrete is seated in a chair bedside, denies any pain or discomfort. Pleasantly disoriented. ROS Constitutional: no chills, aches, sweats or fever Respiratory: no sob,cough, sputum, or wheezing Cardiac: no chest pain, palpitations, edema, orthopnea or lightheadedness GI: no abdominal pain, nausea, vomiting, diarrhea or constipation : no dysuria or hesitancy Extremities: no joint pain or weakness Skin: no rash All other systems reviewed and negative (Esperanza Boyd CRNP) Medications Medications Administered Medications (Trade) Dose Ordered Sig/Ocncepción Route Start Time Stop Time Status Last Admin Dose Admin Heparin Sodium (Porcine) (Heparin Sq 5000 Unit/0.5ml) 5,000 unit Q8 SQ 09/28/17 14:00 10/28/17 13:59 10/03/17 05:45 5,000 UNIT Polyethylene (Miralax Powder Packet) 17 gm DAILY PRN PO 09/28/17 12:00 10/28/17 11:59 09/30/17 21:23 17 GM Cyanocobalamin (Vitamin B-12 Tab) 500 mcg DAILY PO 09/29/17 09:00 10/29/17 08:59 10/03/17 08:11 500 MCG Metoprolol Succinate (Toprol Xl Tab) 12.5 mg DAILY PO 09/29/17 09:00 10/29/17 08:59 10/03/17 08:09 12.5 MG Simvastatin (Zocor Tab) 10 mg QPM PO 09/28/17 21:00 10/28/17 20:59 10/02/17 20:30 10 MG Sodium Chloride (Sodium Chloride Tab) 1 gm ONE STAT PO 09/28/17 14:43 09/29/17 07:50 DC 09/28/17 15:28 1 GM Sodium Chloride 1,000 ml @ 75 mls/hr [id number] IV 09/28/17 15:15 09/29/17 07:50 DC 09/29/17 04:27 75 MLS/HR Potassium Chloride (Klor-Con M10) 20 meq NOW STAT PO 09/29/17 07:49 09/29/17 07:50 DC 09/29/17 08:27 20 MEQ Potassium Chloride 100 ml @ 100 mls/hr Q1H IV 09/29/17 08:00 09/29/17 09:59 DC 09/29/17 09:50 100 MLS/HR Lisinopril (Zestril Tab) 10 mg QAM PO 09/30/17 09:00 10/30/17 08:59 10/03/17 08:09 10 MG Donepezil HCl (Aricept Tab) 5 mg HS PO 09/30/17 21:00 10/30/17 20:59 10/02/17 20:30 5 MG Furosemide (Lasix Tab) 20 mg DAILY PO 10/01/17 09:00 10/31/17 08:59 10/03/17 08:10 20 MG Cephalexin Monohydrate (Keflex Cap) 250 mg QID PO 09/30/17 21:00 09/30/17 21:33 DC 09/30/17 21:13 250 MG Vancomycin HCl 1250 mg/Sodium Chloride 275 ml @ 125 mls/hr TODAY@2200 ONCE IV 09/30/17 22:00 10/01/17 00:11 DC 09/30/17 22:51 125 MLS/HR Cephalexin Monohydrate (Keflex Cap) 500 mg BID PO 10/01/17 21:00 10/11/17 20:59 10/03/17 08:09 500 MG (Esperanza Boyd CRNP) Objective Vital Signs Date Time Temp Pulse Resp B/P (MAP) Pulse Ox O2 Delivery O2 Flow Rate FiO2 10/03/17 07:32 Room Air 10/03/17 07:07 36.9 66 20 128/76 (93) 96 Room Air 10/03/17 00:00 Room Air 10/02/17 23:33 36.3 77 18 114/71 (85) 94 Room Air 10/02/17 22:25 37.9 95 24 131/84 (100) 91 Room Air 10/02/17 16:00 94 Room Air 10/02/17 15:57 36.5 67 19 150/81 (104) 97 Room Air (Esperanza Boyd CRNP) Physical Exam Notes: General: no distress Eyes: normal inspection, PERLL Respiratory: chest non tender, clear to auscultation, normal breath sounds, no respiratory distress, no accessory muscle use Cardiac: regular rate and rhythm, no rub or gallop, no murmur, no edema, no jvd GI/: active bowel sounds, no abd pain or tenderness, soft, mild distention Extremities: normal range of motion, normal strength, non tender Neuro/Psych: alert and oriented x 3, normal mood and affect Skin: normal color, dry (Esperanza Boyd CRNP) Laboratory Results Last 24 Hours Test 10/03/17 06:21 10/03/17 06:22 Sodium Level 136 mmol/L Potassium Level 4.1 mmol/L Chloride Level 100 mmol/L Carbon Dioxide Level 29 mmol/L Anion Gap 7.0 mmol/L Blood Urea Nitrogen 23 mg/dl Creatinine 0.87 mg/dl Est Creatinine Clear Calc Drug Dose 35.7 ml/min Estimated GFR () 68.9 Estimated GFR (Non- 59.5 BUN/Creatinine Ratio 26.2 Random Glucose 100 mg/dl Calcium Level 8.7 mg/dl White Blood Count 5.11 K/uL Red Blood Count 3.38 M/uL Hemoglobin 11.3 g/dL Hematocrit 32.1 % Mean Corpuscular Volume 95.0 fL Mean Corpuscular Hemoglobin 33.4 pg Mean Corpuscular Hemoglobin Concent 35.2 g/dl RDW Standard Deviation 45.7 fL RDW Coefficient of Variation 13.1 % Platelet Count 207 K/uL Mean Platelet Volume 9.4 fL (Esperanza Boyd CRNP) Assessment and Plan Ms. Navarrete is an 87 y/o female here for hyponatremia and altered mental status Acute encephalopathy/metabolic secondary to hyponatremia vs progressive dementia - hyponatremia resolved -IVF and salt tab d/c'd -Serum and urine osmolality both low, urine random sodium WNL -Brain MRI negative for acute disease -Pt also recently started on Restoril but has not taken for several days -UA, urine culture negative -Blood cultures NGTD -Per daughter, pt had been slowly declining last two months but then became acutely much worse prior to arrival -Recommend outpatient neurology referral for follow up and management -Continue Aricept 5 mg PO hs, continue for 4-6 weeks and can then titrate up to 10 mg. Some studies show this can also help in vascular dementia -Zyprexa Zydis 5 mg PO BID prn agitation - consulted palliative care - per their discussion with family, they are uncomfortable with patient returning home. SNF referral placed for [facility] Hypokalemia--resolved Cellulitis, callous on toe w/ulcer -Consulted wound care nurse, podiatry -MRI showed no osteomyelitis. Dr. Vaca debrided at bedside, conitnue negrete's wool toe interspaces and offloading second interspace on left toes. Should follow up weekly with Dr. 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 last time pt had speech abnormality was her brain bleed -Head CT negative for hemorrhage, MRI negative as above Chronic diastolic CHF--stable -Mild volume overload on CXR but asymptomatic -Lower extremity edema improved -Continue metoprolol, lisinopril - Continue Lasix 20 mg PO qd DVT prophylaxis -Heparin 5000 units SC q8h Code Status -Level V, DO NOT RESUSCITATE Dispo - referral to [facility], patient last ran fever last night at 2200, at this point she is medically stable for discharge when [facility] can take her Daughter, Jaelyn, can be reached at: [phone] (cell)Odilia Smith's info also in chart (Esperanza Boyd ., KRISTINA) PUMPER HEAD Physician Supervision Note: I discussed with Esperanza Boyd PUMPER HEAD and agree with findings and plan as documented in the note. Any exceptions or clarifications are listed here: None Patient is at her baseline with fairly significant dementia scheduled for subacute rehab placement after being treated for cellulitis associated with toe ulceration. Continuing Aricept medications of antipsychotics for as needed agitation Documented By: Carlos Preciado (Carlos Preciado M.D.)
[2017-10-03 15:03] VITALS: BP 156/52; PULSE 74; TEMP 36.5; O2SAT 96
[2017-10-03 20:00] VITALS: O2SAT 94
[2017-10-03] MEDS: SIMVASTATIN 10 MG TAB PO SCH (22:02)
[2017-10-03] MEDS: DONEPEZIL HCL 5 MG TAB PO SCH (22:02)
[2017-10-04 00:08] VITALS: BP 129/76; PULSE 85; TEMP 37.1; O2SAT 93
[2017-10-04] MEDS: HEPARIN SOD 5000 UNIT/0.5 ML CARP SQ SCH ×2 (06:01→13:55)
[2017-10-04 06:09] LABS: HEMATOCRIT 33.1 % (37-47); HEMOGLOBIN 11.5 g/dL (12.0-16.0); MEAN CELL VOLUME 95.7 fL (80-100); MEAN CORPUSCULAR HEMOGLOBIN 33.2 pg (25-34); MEAN CORPUSCULAR HGB CONC 34.7 g/dl (32-36); MEAN PLATELET VOLUME 9.3 fL (7.4-10.4); PLATELET COUNT 196 K/uL (130-400); RED CELL DISTRIBUTION WIDTH CV 13.4 % (11.5-14.5); RED CELL DISTRIBUTION WIDTH SD 46.1 fL (36.4-46.3); WHITE BLOOD COUNT 5.38 K/uL (4.8-10.8)
[2017-10-04 06:36] LABS: CALCIUM 8.5 mg/dl (8.5-10.1); CREATININE 0.94 mg/dl (0.60-1.20); POTASSIUM 3.8 mmol/L (3.5-5.1)
[2017-10-04 07:37] VITALS: BP 141/59; PULSE 61; TEMP 36.6; O2SAT 96
[2017-10-04] MEDS: METOPROLOL SUCC 25MG EXT REL TAB PO SCH (08:10)
[2017-10-04] MEDS: CYANOCOBALAMIN 500 MCG TAB (VIT B-12) PO SCH (08:11)
[2017-10-04] MEDS: FUROSEMIDE 20 MG TAB PO SCH (08:11)
[2017-10-04] MEDS: LISINOPRIL 10 MG TAB PO SCH (08:11)
[2017-10-04] MEDS: CEPHALEXIN MONOHYDRATE 500 MG CAP PO SCH (08:12)
--- NOTE | 2017-10-04 13:36 | Hospitalist Progress Note ---
Hospitalist Progress Note Date of Service Oct 04, 2017. Subjective Pt evaluation today including: conversation w/ patient, physical exam, chart review, lab review, review of inpatient medication list Voiding: no voiding problems Ms. Navarrete has no complaints, sitting in chair at bedside. ROS Constitutional: no chills, aches, sweats or fever Respiratory: no sob,cough, sputum, or wheezing Cardiac: no chest pain, palpitations, edema, orthopnea or lightheadedness GI: no abdominal pain, nausea, vomiting, diarrhea or constipation : no dysuria or hesitancy Extremities: no joint pain or weakness Skin: no rash All other systems reviewed and negative Medications Medications Administered Medications (Trade) Dose Ordered Sig/Concepción Route Start Time Stop Time Status Last Admin Dose Admin Heparin Sodium (Porcine) (Heparin Sq 5000 Unit/0.5ml) 5,000 unit Q8 SQ 09/28/17 14:00 10/28/17 13:59 10/04/17 06:01 5,000 UNIT Polyethylene (Miralax Powder Packet) 17 gm DAILY PRN PO 09/28/17 12:00 10/28/17 11:59 09/30/17 21:23 17 GM Cyanocobalamin (Vitamin B-12 Tab) 500 mcg DAILY PO 09/29/17 09:00 10/29/17 08:59 10/04/17 08:11 500 MCG Metoprolol Succinate (Toprol Xl Tab) 12.5 mg DAILY PO 09/29/17 09:00 10/29/17 08:59 10/04/17 08:10 12.5 MG Simvastatin (Zocor Tab) 10 mg QPM PO 09/28/17 21:00 10/28/17 20:59 10/03/17 22:02 10 MG Sodium Chloride (Sodium Chloride Tab) 1 gm ONE STAT PO 09/28/17 14:43 09/29/17 07:50 DC 09/28/17 15:28 1 GM Sodium Chloride 1,000 ml @ 75 mls/hr [id number] IV 09/28/17 15:15 09/29/17 07:50 DC 09/29/17 04:27 75 MLS/HR Potassium Chloride (Klor-Con M10) 20 meq NOW STAT PO 09/29/17 07:49 09/29/17 07:50 DC 7/20/18 08:27 20 MEQ Potassium Chloride 100 ml @ 100 mls/hr Q1H IV 09/29/17 08:00 09/29/17 09:59 DC 09/29/17 09:50 100 MLS/HR Lisinopril (Zestril Tab) 10 mg QAM PO 09/30/17 09:00 10/30/17 08:59 10/04/17 08:11 10 MG Donepezil HCl (Aricept Tab) 5 mg HS PO 09/30/17 21:00 10/30/17 20:59 10/03/17 22:02 5 MG Furosemide (Lasix Tab) 20 mg DAILY PO 10/01/17 09:00 10/31/17 08:59 10/04/17 08:11 20 MG Cephalexin Monohydrate (Keflex Cap) 250 mg QID PO 09/30/17 21:00 09/30/17 21:33 DC 09/30/17 21:13 250 MG Vancomycin HCl 1250 mg/Sodium Chloride 275 ml @ 125 mls/hr TODAY@2200 ONCE IV 09/30/17 22:00 10/01/17 00:11 DC 09/30/17 22:51 125 MLS/HR Cephalexin Monohydrate (Keflex Cap) 500 mg BID PO 10/01/17 21:00 10/11/17 20:59 10/04/17 08:12 500 MG Objective Vital Signs Date Time Temp Pulse Resp B/P (MAP) Pulse Ox O2 Delivery O2 Flow Rate FiO2 10/04/17 08:00 Room Air 10/04/17 07:37 36.6 61 16 141/59 (86) 96 Room Air 10/04/17 00:10 Room Air 10/04/17 00:08 37.1 85 20 129/76 (93) 93 Room Air 10/03/17 20:00 94 Room Air 10/03/17 15:03 36.5 74 18 156/52 (86) 96 Room Air Physical Exam Notes: General: no distress Eyes: normal inspection, PERLL Respiratory: chest non tender, clear to auscultation, normal breath sounds, no respiratory distress, no accessory muscle use Cardiac: regular rate and rhythm, no rub or gallop, no murmur, no edema, no jvd GI/: active bowel sounds, no abd pain or tenderness, soft, non distended Extremities: normal range of motion, normal strength, non tender Neuro/Psych: alert and oriented to self, normal mood and affect Skin: normal color, dry Laboratory Results Last 24 Hours Test 10/04/17 05:46 White Blood Count 5.38 K/uL Red Blood Count 3.46 M/uL Hemoglobin 11.5 g/dL Hematocrit 33.1 % Mean Corpuscular Volume 95.7 fL Mean Corpuscular Hemoglobin 33.2 pg Mean Corpuscular Hemoglobin Concent 34.7 g/dl RDW Standard Deviation 46.1 fL RDW Coefficient of Variation 13.4 % Platelet Count 196 K/uL Mean Platelet Volume 9.3 fL Sodium Level 136 mmol/L Potassium Level 3.8 mmol/L Chloride Level 102 mmol/L Carbon Dioxide Level 28 mmol/L Anion Gap 6.0 mmol/L Blood Urea Nitrogen 24 mg/dl Creatinine 0.94 mg/dl Est Creatinine Clear Calc Drug Dose 33.0 ml/min Estimated GFR () 62.8 Estimated GFR (Non- 54.2 BUN/Creatinine Ratio 25.4 Random Glucose 92 mg/dl Calcium Level 8.5 mg/dl Assessment and Plan Ms. Navarrete is an 87 y/o female here for hyponatremia and altered mental status Acute encephalopathy/metabolic secondary to hyponatremia vs progressive dementia - hyponatremia resolved -IVF and salt tab d/c'd -Serum and urine osmolality both low, urine random sodium WNL -Brain MRI negative for acute disease -Pt also recently started on Restoril but has not taken for several days -UA, urine culture negative -Blood cultures NGTD -Per daughter, pt had been slowly declining last two months but then became acutely much worse prior to arrival -Recommend outpatient neurology referral for follow up and management -Continue Aricept 5 mg PO hs, continue for 4-6 weeks and can then titrate up to 10 mg. Some studies show this can also help in vascular dementia -Zyprexa Zydis 5 mg PO BID prn agitation - consulted palliative care - per their discussion with family, they are uncomfortable with patient returning home. SNF referral placed for [facility] Hypokalemia--resolved Cellulitis, callous on toe w/ulcer -Consulted wound care nurse, podiatry -MRI showed no osteomyelitis. Dr. Vaca debrided at bedside, continue negrete's wool toe interspaces and offloading second interspace on left toes. Should follow up weekly with Dr. 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 Case management working with family and palliative as patient has been denied snf. Daughter, Jaelyn, can be reached at: [phone] (cell). Sarah's info also in chart
[2017-10-04] MEDS ORDERED: ARC5 PO (13:57)
[2017-10-04] MEDS ORDERED: KFL500 PO (13:57)
--- NOTE | 2017-10-04 14:03 | Discharge Instructions ---
Discharge Instructions Date of Service Oct 04, 2017. Admission Reason for Admission: Hyponatremia, Metabolic Encephalopathy Discharge Discharge Diagnosis / Problem: hyponatremia, altered mental status, cellulitis Discharge Goals Goal(s): Improve disease control Activity Recommendations Activity Limitations: resume your previous activity Exercise/Sports Limitations: gradually increase as tolerated . Instructions / Follow-Up Instructions / Follow-Up Please follow up weekly with Dr. Jones. Please follow up with your primary care provider within about a week. Continue cephalexin for a 6 week regimen. Medical management of antibiotics per home health. Continue with use of lambs wool to the 1st and 2nd interdigital spaces. Current Hospital Diet Patient's current hospital diet: Regular Diet Discharge Diet Recommended Diet: Regular Diet Pending Studies Studies pending at discharge: no Medical Emergencies . Who to Call and When: Medical Emergencies: If at any time you feel your situation is an emergency, please call 911 immediately. . Non-Emergent Contact Non-Emergency issues call your: Primary Care Provider Call Non-Emergent contact if: you have any medication questions . . "Provider Documentation" section prepared by Esperanza Boyd. .
--- NOTE | 2017-10-04 14:22 | Discharge Summary ---
Discharge Summary Date of Service Oct 04, 2017. Discharge Summary Admission Date: Sep 28, 2017 at 12:02 Discharge Date: Oct 04, 2017 Discharge Disposition: Home Principal Diagnosis: Acute encephalopathy/metabolic secondary to hyponatremia andprogressive dem Problems/Secondary Diagnoses: Abdominal distention, HTN/HLD--stable, H/o hemorrhagic CVA, Chronic diastolic CHF Immunizations: Have You Had Influenza Vaccine: Yes Influenza Vaccine Date: Jan 06, 2012 History of Tetanus Vaccine?: Unknown History of Pneumococcal: Yes Pneumococcal Date: Jun 05, 2009 History of Hepatitis B Vaccine: No Procedures: Medications Administered Medications (Trade) Dose Ordered Sig/Concepción Route Start Time Stop Time Status Last Admin Dose Admin Heparin Sodium (Porcine) (Heparin Sq 5000 Unit/0.5ml) 5,000 unit Q8 SQ 09/28/17 14:00 10/28/17 13:59 10/04/17 13:55 5,000 UNIT Polyethylene (Miralax Powder Packet) 17 gm DAILY PRN PO 09/28/17 12:00 10/28/17 11:59 09/30/17 21:23 17 GM Cyanocobalamin (Vitamin B-12 Tab) 500 mcg DAILY PO 09/29/17 09:00 10/29/17 08:59 10/04/17 08:11 500 MCG Metoprolol Succinate (Toprol Xl Tab) 12.5 mg DAILY PO 09/29/17 09:00 10/29/17 08:59 10/04/17 08:10 12.5 MG Simvastatin (Zocor Tab) 10 mg QPM PO 09/28/17 21:00 10/28/17 20:59 10/03/17 22:02 10 MG Sodium Chloride (Sodium Chloride Tab) 1 gm ONE STAT PO 09/28/17 14:43 09/29/17 07:50 DC 09/28/17 15:28 1 GM Sodium Chloride 1,000 ml @ 75 mls/hr [id number] IV 09/28/17 15:15 09/29/17 07:50 DC 09/29/17 04:27 75 MLS/HR Potassium Chloride (Klor-Con M10) 20 meq NOW STAT PO 09/29/17 07:49 09/29/17 07:50 DC 09/29/17 08:27 20 MEQ Potassium Chloride 100 ml @ 100 mls/hr Q1H IV 09/29/17 08:00 09/29/17 09:59 DC 09/29/17 09:50 100 MLS/HR Lisinopril (Zestril Tab) 10 mg QAM PO 09/30/17 09:00 10/30/17 08:59 10/04/17 08:11 10 MG Donepezil HCl (Aricept Tab) 5 mg HS PO 09/30/17 21:00 10/30/17 20:59 10/03/17 22:02 5 MG Furosemide (Lasix Tab) 20 mg DAILY PO 10/01/17 09:00 10/31/17 08:59 10/04/17 08:11 20 MG Cephalexin Monohydrate (Keflex Cap) 250 mg QID PO 09/30/17 21:00 09/30/17 21:33 DC 09/30/17 21:13 250 MG Vancomycin HCl 1250 mg/Sodium Chloride 275 ml @ 125 mls/hr TODAY@2200 ONCE IV 09/30/17 22:00 10/01/17 00:11 DC 09/30/17 22:51 125 MLS/HR Cephalexin Monohydrate (Keflex Cap) 500 mg BID PO 10/01/17 21:00 10/11/17 20:59 10/04/17 08:12 500 MG Consultations: Dr. Vaca from podiatry, Dr. Johnson from orthopedics Medication Reconciliation New Medications: Cephalexin Monohydrate (Cephalexin) 500 Mg Cap 500 MG PO BID for 37 Days, #74 CAP Donepezil HCl (Donepezil HCl) 5 Mg Tab 5 MG PO HS for 30 Days, #30 TAB Continued Medications: Acetaminophen (Tylenol) 500 Mg Tab 500 MG PO Q4-6H, TAB Cranberry-Vitamin C-Vitamin E (Cranberry Plus Vitamin C 4200-20-3 mg-Unit) 1 Cap Cap 1 CAP PO DAILY Cyanocobalamin (Vitamin B-12) 500 Mcg Tab 500 MCG PO DAILY, TAB Furosemide (Lasix) 20 Mg Tab 20 MG PO DAILY, TAB MAY TAKE ONE EXTRA TABLET NEEDED FOR SWELLING Lisinopril (Zestril) 10 Mg Tab 10 MG PO DAILY, TAB Loratadine (Allergy Relief) 10 Mg Tab 10 MG PEG DAILY Magnesium Hydroxide (Milk Of Magnesia) 30 Ml Susp 30 ML PO UD, ML Metoprolol Succinate (Toprol Xl) 25 Mg Tab 12.5 MG PO DAILY, #30 TAB Multiple Vitamins W/ Minerals (Centrum Silver) 1 Chw Chw 1 TAB PO DAILY Simvastatin (Zocor) 10 Mg Tab 10 MG PO QPM, TAB Discontinued Medications: Temazepam (Restoril) 15 Mg Cap 7.5 MG PO HS, CAP Triamterene/Hctz (Dyazide 37.5MG/25MG) Cap 1 TAB PO BID, CAP Discharge Exam ROS Constitutional: no chills, aches, sweats or fever Respiratory: no sob,cough, sputum, or wheezing Cardiac: no chest pain, palpitations, edema, orthopnea or lightheadedness GI: no abdominal pain, nausea, vomiting, diarrhea or constipation : no dysuria or hesitancy Extremities: no joint pain or weakness Skin: no rash All other systems reviewed and negative PE General: no distress Eyes: normal inspection, PERLL Respiratory: chest non tender, clear to auscultation, normal breath sounds, no respiratory distress, no accessory muscle use Cardiac: regular rate and rhythm, no rub or gallop, no murmur, no edema, no jvd GI/: active bowel sounds, no abd pain or tenderness, soft, non distended Extremities: normal range of motion, normal strength, non tender Neuro/Psych: alert and oriented to person, normal mood and affect Skin: normal color, dry, left foot without erythema or edema Hospital Course Ms. Navarrete is an 87 y/o female here for hyponatremia and altered mental status Acute encephalopathy/metabolic secondary to hyponatremia vs progressive dementia - hyponatremia resolved -IVF and salt tab d/c'd -Serum and urine osmolality both low, urine random sodium WNL -Brain MRI negative for acute disease -Pt also recently started on Restoril but had not taken for several days - will continue to hold for home -UA, urine culture negative -Blood cultures NGTD -Per daughter, pt had been slowly declining last two months but then became acutely much worse prior to arrival -Recommend outpatient neurology referral for follow up and management -Continue Aricept 5 mg PO hs, continue for 4-6 weeks and can then titrate up to 10 mg. Some studies show this can also help in vascular dementia -Zyprexa Zydis 5 mg PO BID prn agitation - consulted palliative care - patient will likely not qualify for hospice at this time. Hypokalemia--resolved Cellulitis, callous on toe w/ulcer -Consulted wound care nurse, podiatry -MRI showed no osteomyelitis. Dr. Vaca debrided at bedside, continue negrete's wool toe interspaces and offloading second interspace on left toes. Should follow up weekly with Dr. Jones per podiatry - Continue Keflex - will need 6 weeks total of therapy -Ortho consulted Abdominal distention - patient having daily bm - no N/V or pain HTN/HLD--stable - Will stop triamterene/HCTZ indefinitely - Continue lisinopril 10 mg PO qd - Continue Toprol XL 12.5 mg PO qd and Zocor 10 mg PO qd H/o hemorrhagic CVA--daughter states last time pt had speech abnormality was her brain bleed -Head CT negative for hemorrhage, MRI negative as above Chronic diastolic CHF--stable - Mild volume overload on CXR but asymptomatic - Lower extremity edema improved - Continue metoprolol, lisinopril - Continue Lasix 20 mg PO qd Patient was denied SNF and will return home with home health Daughter, Jaelyn, can be reached at: [phone] (cell). Sarah's info also in chart RN MILITARY Physician Supervision Note: I discussed with Esperanza Boyd RN MILITARY and agree with findings and plan as documented in the note. Any exceptions or clarifications are listed here: None Documented By: Carlos Preciado Total Time Spent: Greater than 30 minutes This includes examination of the patient, discharge planning, medication reconciliation, and communication with other providers. Discharge Instructions Please refer to the electronic Patient Visit Report (Discharge Instructions) for additional information.
[2017-10-04 14:25] VITALS: BP 141/59; PULSE 61; TEMP 36.6; O2SAT 96
--- NOTE | 2017-10-04 15:15 | Palliative Care Progress Note ---
Palliative Care Progress Note Date of Service Oct 04, 2017. Subjective Pt evaluation today including: conversation w/ patient, conversation w/ family (daughterSarah), physical exam, chart review, conversation w/ software consultant Pain: none PO Intake: tolerating diet Patient is awake and pleasantly confused, sitting in chair. Patient denies any c/o pain or SOB. Spoke with patient's daughterSarah, on phone for 30 minutes this morning discussing progression of dementia, dementia timeline, potential future complications, etc. Review of Systems Constitutional: No weakness ENT: No trouble swallowing Respiratory: No cough, No shortness of breath Cardiac: No chest pain, No edema Abdomen: No pain, No nausea, No vomiting Female : No problem reported Psychiatric: No depression symptoms, No anxiety Objective Vital Signs Date Time Temp Pulse Resp B/P (MAP) Pulse Ox O2 Delivery O2 Flow Rate FiO2 10/04/17 14:25 36.6 61 16 96 Room Air 10/04/17 08:00 Room Air 10/04/17 07:37 36.6 61 16 141/59 (86) 96 Room Air 10/04/17 00:10 Room Air 10/04/17 00:08 37.1 85 20 129/76 (93) 93 Room Air 10/03/17 20:00 94 Room Air 10/03/17 15:03 36.5 74 18 156/52 (86) 96 Room Air Physical Exam General Appearance: no apparent distress ENT: hearing grossly normal Neck: supple, no JVD Respiratory/Chest: lungs clear, no respiratory distress, no accessory muscle use Cardiovascular: regular rate, rhythm, no edema, + normal peripheral pulses Abdomen: normal bowel sounds, non tender, soft Neurologic/Psychiatric: alert, + disoriented Laboratory Results Last 24 Hours Test 10/04/17 05:46 White Blood Count 5.38 K/uL Red Blood Count 3.46 M/uL Hemoglobin 11.5 g/dL Hematocrit 33.1 % Mean Corpuscular Volume 95.7 fL Mean Corpuscular Hemoglobin 33.2 pg Mean Corpuscular Hemoglobin Concent 34.7 g/dl RDW Standard Deviation 46.1 fL RDW Coefficient of Variation 13.4 % Platelet Count 196 K/uL Mean Platelet Volume 9.3 fL Sodium Level 136 mmol/L Potassium Level 3.8 mmol/L Chloride Level 102 mmol/L Carbon Dioxide Level 28 mmol/L Anion Gap 6.0 mmol/L Blood Urea Nitrogen 24 mg/dl Creatinine 0.94 mg/dl Est Creatinine Clear Calc Drug Dose 33.0 ml/min Estimated GFR () 62.8 Estimated GFR (Non- 54.2 BUN/Creatinine Ratio 25.4 Random Glucose 92 mg/dl Calcium Level 8.5 mg/dl Assessment and Plan Problem list: Confusion/disorientation Hyponatremia- resolved Toe ulcer/cellulitis Dementia, vascular Goals of care Palliative care recs: -Patient was denied SNF stay for rehab as she walked 750 ft with therapy yesterday and is at her baseline. -Spoke on phone for 30 minutes with patient's daughter, Sarah, about dementia timeline, progression of dementia, possible future complications related to progressive dementia, etc. We also discussed what hospice care is-- goal, services provided, etc. Sarah would like a hospice evaluation by [facility]. If patient does not qualify for hospice, they would be okay with home health first with eventual transition to hospice. -Patient is probably FAST score 6b. Typically hospice eligibility begins at 7c, but patient does have multiple comorbidities. manager talent will follow up in order to make referrals. -Patient's daughters will likely take patient home and provide her care in the home along with home health/hospice agency (depending on determination). -Either way, their goal is for patient to remain in the home for as long as possible and avoid any invasive/aggressive care. -Will follow as needed. Total time spent 65 minutes with >50% of time spent counseling and coordinating care with patient's family and ROAD MIXER OPERATOR. Palliative Performance Scale: 50 %
[2017-10-04 15:32] VITALS: BP 153/71; PULSE 82; TEMP 36.8; O2SAT 95
== END 2017-10-04 18:41 | disposition home health service (06) | DRG 640 ==
LOC: C.EDB 09:27 → C.MED 12:02 → UNDOADMIN 12:02 → CANRESERV 12:13 → ENRESERV 12:13 → EDBEDREQ 12:19 → ENRESERV 12:20 → C.MED 09-29 18:18
PROVIDERS: ADMIT Hospitalist; ATTEND Nurse Practitioner Family
PROC: 0JDR3ZZ Extraction of Left Foot Subcutaneous Tissue and Fascia, Percutaneous Approach (ICD-10-PCS; principal; 2017-09-30)
DX: E87.1 Hypo-osmolality and hyponatremia (principal); G93.41 Metabolic encephalopathy; F01.51 Vascular dementia, unspecified severity, with behavioral disturbance; I11.0 Hypertensive heart disease with heart failure; I50.32 Chronic diastolic (congestive) heart failure; L03.032 Cellulitis of left toe; L84 Corns and callosities; E78.5 Hyperlipidemia, unspecified; E87.6 Hypokalemia; Z66 Do not resuscitate; Z79.899 Other long term (current) drug therapy; Z88.2 Allergy status to sulfonamides; L97.529 Non-pressure chronic ulcer of other part of left foot with unspecified severity; R14.0 Abdominal distension (gaseous)

== ENCOUNTER 2017-10-30 11:57 | Emergency (ER) | payer BC, OTHER ==
[~2017-10-30 11:57] MED LIST changes: +ACET-1256 PO; -ACET-1311 PO; +ARC5 PO; +CRANCAP4 PO; +CYAN500T PO; -DYZ PO; +KFL500 PO; +LORA-554 PEG; -MAGNSUS5 PO; +METO-478 PO; -METO25TA4 PO; +MOML PO; -MULT-411 PO; +MULTCHW PO; -SIMV10TA2 PO; +SIMV10TA5 PO
[2017-10-30 12:40] LABS: BASO % 0.5 %; BASO ABS # 0.03 K/uL (0-0.2); EOS % 0.8 %; EOS ABS # 0.05 K/uL (0-0.5); HEMATOCRIT 37.9 % (37-47); HEMOGLOBIN 12.9 g/dL (12.0-16.0); IG# 0.02 K/uL (0.00-0.02); LYMPH % 24.9 %; MEAN CELL VOLUME 97.7 fL (80-100); MEAN CORPUSCULAR HEMOGLOBIN 33.2 pg (25-34); MEAN PLATELET VOLUME 9.4 fL (7.4-10.4); MONO ABS # 0.36 K/uL (0.11-0.59); NEUT % 67.5 %; NEUT ABS # 4.06 K/uL (1.4-6.5); PLATELET COUNT 231 K/uL (130-400); RED CELL DISTRIBUTION WIDTH CV 13.3 % (11.5-14.5); RED CELL DISTRIBUTION WIDTH SD 47.3 fL (36.4-46.3); WHITE BLOOD COUNT 6.02 K/uL (4.8-10.8)
[2017-10-30] MEDS ORDERED: ZOLP5TAB PO (12:42)
--- NOTE | 2017-10-30 12:56 | EMERGENCY ROOM VISIT NOTE ---
ED Visit Note First contact with patient: 12:06 CHIEF COMPLAINT: Fall, hit head, dyspnea on exertion HISTORY OF PRESENTING ILLNESS: This is an 87-year-old female with past medical history significant for hypertension, hyperlipidemia, pulmonary edema, previous intracranial hemorrhage, and vascular dementia who presents to the emergency department by private vehicle with her daughter with concern for fall and hitting her head last night. Patient's daughter reports that she had just gotten the patient to bed, when she heard a thud and went into the room and found that the patient had gone back out of bed and had fallen onto the floor. There was no loss of consciousness, but she did fall forward and hit the front of her forehead. She denies headache or neck pain. She denies vision changes. She denies nausea or vomiting. She denies dizziness or passing out, states she tripped on her feet. She does not take any blood thinners. Her daughter also states that for the past 2-3 days she has been seeming more short of breath with activities and feels that her legs are little more swollen than usual. She does take 20 mg of Lasix daily for edema. Patient denies any chest pain, shortness of breath, or cough. REVIEW OF SYSTEMS: A complete 10 point review of systems was reviewed with the patient and her daughter with pertinent positives and negatives as per history of present illness. All else were negative. PAST MEDICAL HISTORY: Reviewed in chart, see problem list below. SOCIAL HISTORY: Lives at home with her daughter. Denies tobacco use. ALLERGIES: Reviewed in the chart, see below PHYSICAL EXAM: CONSTITUTIONAL: Pleasant and cooperative. No acute distress. Well appearing and well nourished. HEENT: Normocephalic. Forehead contusion. No raccoon eyes or lyons sign. No abrasions or lacerations. Pupils equal, round and reactive to light, EOMI. TMs normal, no hemotympanum bilaterally. Pharynx normal. NECK: Supple, full active range of motion without discomfort. No midline tenderness to palpation of the cervical spine. RESPIRATORY: Diminished in the bases with fine crackles on auscultation bilaterally, no wheezes, rhonchi or stridor. Equal expansion bilaterally. CARDIOVASCULAR: Regular rate and rhythm with no murmurs, rubs or gallops. Normal peripheral perfusion. No edema. GASTROINTESTINAL: Soft, nontender, nondistended. No palpable masses or HSM. Bowel sounds present in all quadrants. MUSCULOSKELETAL: Full range of motion of all joints without discomfort. INTEGUMENTARY: No rash or other significant dermatologic conditions noted. NEUROLOGIC: Alert, oriented to person (patient's baseline per daughter) with normal affect. Cranial nerves II-XII grossly intact, no facial droop. No pronator drift. No focal neurologic deficits noted. Normal strength and sensation intact in all 4 extremities. Normal speech. ED COURSE AND MEDICAL DECISION MAKING: CC: Patient presenting with complaint of fall, hit head, dyspnea on exertion DIFFERENTIAL DIAGNOSIS: Includes, but not limited to traumatic injuries including intracranial hemorrhage, skull fracture, cervical spine fracture or subluxation, concussion, bronchitis, pneumonia, CHF exacerbation, pulmonary edema/fluid overload, acute coronary syndrome, PE, UTI, among others. INTERPRETATION OF LABS: No leukocytosis, no anemia, normal platelets, no significant electrolyte abnormalities, normal renal function, normal liver enzymes. Negative troponin, pro-BMP within normal limits. UA negative for infection. IMAGING: CHEST 2 VIEWS ROUTINE CLINICAL HISTORY: 87 years-old Female presenting with SOB, eval pna, chf, trauma. TECHNIQUE: Portable upright AP view of the chest was obtained. COMPARISON: 09/28/2017. FINDINGS: [place] rotation results in prominence of the mediastinum. Atherosclerosis of the aortic arch. Cardiac silhouette enlarged. Mild pulmonary vascular prominence similar to prior exam. Mildly low lung volumes. Minimal basilar opacities. No pleural effusion or pneumothorax. Degenerative changes of the thoracic spine. Upper abdomen normal. IMPRESSION: 1. Prominence of the mediastinum likely due to rotation. 2. Cardiomegaly with persistent vascular prominence suggesting volume overload. 3. Mildly low lung volumes with bibasilar atelectasis. ----- CT HEAD WITHOUT CONTRAST (CT) CLINICAL HISTORY: Head pain status post head trauma COMPARISON STUDY: 09/28/2017 TECHNIQUE: Axial CT of the brain is performed from the vertex to the skull base. IV contrast was not administered for this examination. A dose lowering technique was utilized adhering to the principles of ALARA. CT DOSE: 1076.04 mGy.cm FINDINGS: No intra or extra-axial mass lesions are visualized. There is no CT evidence of acute cortical infarction. There is no evidence of midline shift. There is no acute hemorrhage. No calvarial fractures are visualized. There are moderate white matter hypodensities likely on a small vessel basis. 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 There is no evidence of pathologic ventricular dilatation. There is no evidence of acute sinusitis IMPRESSION: No acute intracranial findings ----- CT OF THE CERVICAL SPINE CLINICAL HISTORY: Neck pain status post trauma COMPARISON STUDY: No previous studies for comparison. CT DOSE: TECHNIQUE: CT scan of the cervical spine was performed from the skull base to the thoracic inlet. Images are reviewed in the axial, sagittal, and coronal planes. IV contrast was not administered for this examination. A dose lowering technique was utilized adhering to the principles of ALARA. FINDINGS: There is a nodular right lobe thyroid goiter. No pneumothorax is visualized. The prevertebral soft tissues are normal. No fractures or traumatic subluxations are visualized. There are multilevel degenerative changes. Minor retrolisthesis of C5 on C6 is felt to be degenerative. There is fusion of the C2-3 posterior elements on the left IMPRESSION: No evidence of acute fracture or traumatic subluxation. EKG: Shows sinus rhythm with a rate of 65 bpm, occasional premature atrial complexes, no acute ST or T-wave changes, rate is decreased by 30 bpm, no other significant changes when compared to previous EKG from 09/28/2017 by my interpretation. MEDICATION RECONCILIATION: I attest that I have personally reviewed the patient 's current medication list. INITIAL VITAL SIGNS REVIEW: I reviewed the patient's initial vital signs and interpret them as follows: T: Afebrile; BP: Hypertensive; HR: Within normal limits; RR: Within normal limits; Pulse Ox: Within normal limits on room air. Blood pressure screening: The patient was found to have an elevated blood pressure and was referred to their primary doctor for recheck and further treatment. SUMMARY: Patient was evaluated at bedside, history and physical exam performed. Patient is alert, oriented to self and at her cognitive baseline per her daughter, in no acute distress, resting calmly in the stretcher. Neurologic exam is grossly intact with no focal deficits. There is a moderate contusion of the forehead, no skull depression or fracture crepitus. Patient is noted to have pitting edema of the bilateral lower extremities, mild fine crackles on lung exam. She is not tachypneic and no labored breathing noted. No hypoxia. Orders were placed at bedside for labs, UA, chest x-ray, CT head and cervical spine to evaluate for trauma. Patient discussed with Dr. Marinelli, who agrees with my assessment and plan. Labs and imaging reviewed as above, no significant abnormalities. Specifically , no trauma. Negative troponin and normal BNP. Chest x-ray does indicate some pulmonary congestion, however patient has been stable with no signs of significant CHF/fluid overload. I discussed with the patient and her daughter, she would like to be discharged home. She was given an IV dose of Lasix 20 mg, and was encouraged to double her Lasix dose for the next 2 days. Patient reassessed multiple times throughout ED stay, she has remained stable, in no acute distress, and with no complaints. Patient's daughter was updated on all results and plan for discharge, she was encouraged to follow closely with her PCP this week. Patient's daughter was also given strict return precautions should her symptoms worsen, she verbalized understanding. Patient was discharged home in stable condition and ambulatory. Problem List Medical Problems: (1) Benign hypertension Status: Chronic (2) Intracranial hemorrhage Status: Chronic (3) Left ankle fracture Status: Resolved (4) Transient ischemic attack Status: Chronic Current/Historical Medications Scheduled Donepezil HCl (Donepezil HCl), 5 MG PO HS Furosemide (Lasix), 20 MG PO DAILY Lisinopril (Zestril), 10 MG PO DAILY Metoprolol Succinate (Toprol Xl), 12.5 MG PO DAILY Simvastatin (Zocor), 10 MG PO QPM Zolpidem Tartrate (Ambien), 5 MG PO HS Allergies Coded Allergies: Latex1 -Allergic Contact Dermititis (Unverified Allergy, Intermediate, Rash, 10/30/17) Sulfamethoxazole w/Trimethoprim (Verified Allergy, Unknown, nausea, diarrhea, 10/30/17) allscripts Vital Signs Date Time Temp Pulse Resp B/P (MAP) Pulse Ox O2 Delivery O2 Flow Rate FiO2 10/30/17 17:48 36.8 66 17 167/74 96 10/30/17 16:33 165/85 10/30/17 14:43 65 16 170/81 96 Room Air 10/30/17 12:42 62 10/30/17 12:02 36.8 67 18 161/87 95 Room Air Laboratory Results 10/30/17 12:30 Red Blood Count 3.88, Mean Corpuscular Volume 97.7, Mean Corpuscular Hemoglobin 33.2, Mean Corpuscular Hemoglobin Concent 34.0, Mean Platelet Volume 9.4, Neutrophils (%) (Auto) 67.5, Lymphocytes (%) (Auto) 24.9, Monocytes (%) (Auto) 6.0, Eosinophils (%) (Auto) 0.8, Basophils (%) (Auto) 0.5, Neutrophils # (Auto) 4.06, Lymphocytes # (Auto) 1.50, Monocytes # (Auto) 0.36, Eosinophils # (Auto) 0.05, Basophils # (Auto) 0.03 10/30/17 12:30 Test 10/30/17 12:30 10/30/17 12:50 White Blood Count 6.02 K/uL (4.8-10.8) Red Blood Count 3.88 M/uL (4.2-5.4) Hemoglobin 12.9 g/dL (12.0-16.0) Hematocrit 37.9 % (37-47) Mean Corpuscular Volume 97.7 fL (80-100) Mean Corpuscular Hemoglobin 33.2 pg (25-34) Mean Corpuscular Hemoglobin Concent 34.0 g/dl (32-36) Platelet Count 231 K/uL (130-400) Mean Platelet Volume 9.4 fL (7.4-10.4) Neutrophils (%) (Auto) 67.5 % Lymphocytes (%) (Auto) 24.9 % Monocytes (%) (Auto) 6.0 % Eosinophils (%) (Auto) 0.8 % Basophils (%) (Auto) 0.5 % Neutrophils # (Auto) 4.06 K/uL (1.4-6.5) Lymphocytes # (Auto) 1.50 K/uL (1.2-3.4) Monocytes # (Auto) 0.36 K/uL (0.11-0.59) Eosinophils # (Auto) 0.05 K/uL (0-0.5) Basophils # (Auto) 0.03 K/uL (0-0.2) RDW Standard Deviation 47.3 fL (36.4-46.3) RDW Coefficient of Variation 13.3 % (11.5-14.5) Immature Granulocyte % (Auto) 0.3 % Immature Granulocyte # (Auto) 0.02 K/uL (0.00-0.02) Anion Gap 7.0 mmol/L (3-11) Estimated GFR () 69.9 Estimated GFR (Non- 60.3 BUN/Creatinine Ratio 18.1 (10-20) Calcium Level 8.9 mg/dl (8.5-10.1) Total Bilirubin 0.6 mg/dl (0.2-1) Aspartate Amino Transf (AST/SGOT) 24 U/L (15-37) Alanine Aminotransferase (ALT/SGPT) 31 U/L (12-78) Alkaline Phosphatase 68 U/L (45-117) Troponin I < 0.015 ng/ml (0-0.045) Pro-B-Type Natriuretic Peptide 663 pg/ml (0-1800) Total Protein 7.8 gm/dl (6.4-8.2) Albumin 3.9 gm/dl (3.4-5.0) Globulin 3.9 gm/dl (2.5-4.0) Albumin/Globulin Ratio 1.0 (0.9-2) Urine Color YELLOW Urine Appearance CLEAR (CLEAR) Urine pH 8.0 (4.5-7.5) Urine Specific [place] 1.005 (1.000-1.030) Urine Protein NEG (NEG) Urine Glucose (UA) NEG (NEG) Urine Ketones NEG (NEG) Urine Occult Blood NEG (NEG) Urine Nitrite NEG (NEG) Urine Bilirubin NEG (NEG) Urine Urobilinogen NEG (NEG) Urine Leukocyte Esterase NEG (NEG) Medications Administered Medications (Trade) Dose Ordered Sig/Concepc[place] Route Start Time Stop Time Status Last Admin Dose Admin Furosemide 20 mg/ Syringe 2 ml @ 4 mls/min ONE ONCE IV 10/30/17 16:15 10/30/17 16:16 DC 10/30/17 16:29 4 MLS/MIN Departure Information Impression Primary Impression: Closed head injury Additional Impressions: Fall Dyspnea on exertion Dispostion Home / Self-Care Condition GOOD Referrals Lee Manuel M.D. (PCP) Patient Instructions ED Dyspnea Shortness of Breath, ED Head Injury Closed, ED Mechanical Fall, ED Prevention Fall, My [facility] Additional Instructions You have been evaluated and treated in the emergency department today for your head injury and fall, as well as your shortness of breath. Laboratory results and imaging studies have ruled out any emergent causes for your symptoms which would warrant admission or surgery. Your chest x-ray does show a slight increase in fluid in the lungs. You should take double your amount of Lasix for the next 2 days (40 mg--2 tabs). You may take regular strength (325mg/tab) Tylenol (acetaminophen) 2 tabs every 4 -6 hours as needed for headaches or pain. Do not exceed 10 tablets in a 24 hour period. Avoid taking more than 3000 mg of Tylenol per day. This includes any other sources of acetaminophen you may take on a regular basis. Please follow-up with your Primary Care Provider in the next few days to be rechecked and to discuss your Lasix dosing. Please return to the ER for any worsening symptoms, including chest pain, worsening shortness of breath, cough, severe dizziness or passing out severe headache, persistent vomiting, vision changes, worsening confusion, numbness or weakness on one side of the body, balance issues or difficulty walking, or any other concerns. Problem Qualifiers Primary Impression: Closed head injury Encounter type: initial encounter Qualified Codes: S09.90XA - Unspecified injury of head, initial encounter Additional Impressions: Fall Encounter type: initial encounter Qualified Codes: W19.XXXA - Unspecified fall, initial encounter
--- NOTE | 2017-10-30 13:04 | EMERGENCY ROOM VISIT NOTE ---
ED Visit Note First contact with patient: 12:06 The patient was seen and examined with Esperanza Hill NP. I agree with the history, physical and findings. Please see the note for disposition and details.
[2017-10-30 13:08] LABS: ALBUMIN 3.9 gm/dl (3.4-5.0); ALKALINE PHOSPHATASE 68 U/L (45-117); ALT/SGPT 31 U/L (12-78); AST/SGOT 24 U/L (15-37); BLOOD UREA NITROGEN 16 mg/dl (7-18); CALCIUM 8.9 mg/dl (8.5-10.1); CARBON DIOXIDE 32 mmol/L (21-32); CREATININE 0.86 mg/dl (0.60-1.20); GLUCOSE 90 mg/dl (70-99); POTASSIUM 3.9 mmol/L (3.5-5.1); SODIUM 135 mmol/L (136-145); TOTAL PROTEIN 7.8 gm/dl (6.4-8.2)
--- NOTE | 2017-10-30 14:12 | DIAGNOSTIC IMAGING REPORT ---
CT HEAD WITHOUT CONTRAST (CT) CLINICAL HISTORY: Head pain status post head trauma COMPARISON STUDY: 09/28/2017 TECHNIQUE: Axial CT of the brain is performed from the vertex to the skull base. IV contrast was not administered for this examination. A dose lowering technique was utilized adhering to the principles of ALARA. CT DOSE: 1076.04 mGy.cm FINDINGS: No intra or extra-axial mass lesions are visualized. There is no CT evidence of acute cortical infarction. There is no evidence of midline shift. There is no acute hemorrhage. No calvarial fractures are visualized. There are moderate white matter hypodensities likely on a small vessel basis. 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 There is no evidence of pathologic ventricular dilatation. There is no evidence of acute sinusitis IMPRESSION: No acute intracranial findings Electronically signed by: Gianluca Henry M.D. 10/30/2017 2:10 PM Dictated Date/Time: 10/30/2017 2:09 PM
--- NOTE | 2017-10-30 14:22 | DIAGNOSTIC IMAGING REPORT ---
CT OF THE CERVICAL SPINE CLINICAL HISTORY: Neck pain status post trauma COMPARISON STUDY: No previous studies for comparison. CT DOSE: TECHNIQUE: CT scan of the cervical spine was performed from the skull base to the thoracic inlet. Images are reviewed in the axial, sagittal, and coronal planes. IV contrast was not administered for this examination. A dose lowering technique was utilized adhering to the principles of ALARA. FINDINGS: There is a nodular right lobe thyroid goiter. No pneumothorax is visualized. The prevertebral soft tissues are normal. No fractures or traumatic subluxations are visualized. There are multilevel degenerative changes. Minor retrolisthesis of C5 on C6 is felt to be degenerative. There is fusion of the C2-3 posterior elements on the left IMPRESSION: No evidence of acute fracture or traumatic subluxation. Electronically signed by: Gianluca Henry M.D. 10/30/2017 2:21 PM Dictated Date/Time: 10/30/2017 2:18 PM
--- NOTE | 2017-10-30 14:24 | DIAGNOSTIC IMAGING REPORT ---
CHEST 2 VIEWS ROUTINE CLINICAL HISTORY: 87 years-old Female presenting with SOB, eval pna, chf, trauma. TECHNIQUE: Portable upright AP view of the chest was obtained. COMPARISON: 09/28/2017. FINDINGS: [place]OTT[place] rotation results in prominence of the mediastinum. Atherosclerosis of the aortic arch. Cardiac silhouette enlarged. Mild pulmonary vascular prominence similar to prior exam. Mildly low lung volumes. Minimal basilar opacities. No pleural effusion or pneumothorax. Degenerative changes of the thoracic spine. Upper abdomen normal. IMPRESSION: 1. Prominence of the mediastinum likely due to rotation. 2. Cardiomegaly with persistent vascular prominence suggesting volume overload. 3. Mildly low lung volumes with bibasilar atelectasis. Electronically signed by: Prakash Salter M.D. 10/30/2017 2:23 PM Dictated Date/Time: 10/30/2017 2:21 PM
[2017-10-30] MEDS ORDERED: FUROSEMIDE INJ 20 MG in SYRINGE 0 ML IV ONE (16:15)
[2017-10-30 17:48] VITALS: BP 167/74; PULSE 66; TEMP 36.8; O2SAT 96
== END 2017-10-30 17:49 | disposition home or self-care (01) ==
LOC: C.EDB 11:59 → C.EDD 17:49
DX: S09.90XA Unspecified injury of head, initial encounter (principal); W19.XXXA Unspecified fall, initial encounter; J45.901 Unspecified asthma with (acute) exacerbation; I10 Essential (primary) hypertension; Z86.73 Personal history of transient ischemic attack (TIA), and cerebral infarction without residual deficits; Z88.2 Allergy status to sulfonamides